=== PATIENT | female | born 1960 | race Caucasian/White ===

== ENCOUNTER → 2019-08-23 09:20 | Outpatient (CLI) | payer OTHER, SELFPAY ==
--- NOTE | ~2019-08-23 | XR_ITS ---
XR hip RT 2V w AP pelvis 08/23/2019 10:30 Indication: Hip pain Procedure: AP pelvis and 2 views right hip Comparison: Comparison to multiple prior studies sequentially, with oldest reviewed study dated 04/19. Findings: Pelvic rings are intact. Sacral foramen are symmetric. Mild osteoarthritis of the right hip . There is a dynamic compression screw of the right femoral neck with intramedullary siomara. There is a single distal interlocking screw. No acute fracture or traumatic malalignment. Impression: 1: No acute fracture. Reviewed, dictated and finalized at location A. UREMENT AND SENSING TECHNICIAN Impression: 1: No acute fracture.
== END ==
PROVIDERS: PCP Family Medicine; Visit Provider Physician Assistant
DX: M25.559 Pain in unspecified hip (principal)
CPT/HCPCS: 73502; 73521

== ENCOUNTER 2021-02-17 08:22 | Day surgery (SDC) | payer OTHER, SELFPAY ==
[2021-02-17] VITALS (7 sets, daily range): BP systolic 139–171; BP diastolic 76–92; PULSE 62–78; RESP 16–22; TEMP 36.4–36.8; O2SAT 94–100; BMI 23.6
--- NOTE | ~2021-02-17 | XR_ITS ---
EXAMINATION: XR surgery orthopedic DATE: 02/17/2021 17:01 INDICATION: Distal left radius fracture. TECHNIQUE: 3 intraoperative fluoroscopic views of left wrist were obtained. I was not present. Fluoro scopy exposure time was 18 seconds. COMPARISON: Left wrist radiographs 02/16/2021 FINDINGS: There is a comminuted fractures of distal radius in near-anatomic alignment status post ope n reduction internal fixation with volar plate and screws. There is an avulsion fracture of the ulnar styloid. IMPRESSION: 1. Comminuted fracture of distal radius status post open reduction internal fixation. 2. Avulsion fracture of the ulnar styloid. Reviewed, dictated and finalized at location A. IMPRESSION: 1. Comminuted fracture of distal radius status post open reduction internal fix ation. 2. Avulsion fracture of the ulnar styloid.
[2021-02-17] MEDS: ACETAMINOPHEN 500 MG TABLET 1000 MG PO (12:00)
--- NOTE | 2021-02-17 12:06 | WPDANESEPPF ---
Anes - Initial Pre Proc Eval Procedure: Operation Date: 02/17/21 13:30 Proposed Procedures p Open Reduction Internal Fixation Left Distal Radius Fracture - Jordon Purdy MD Date/Time: 02/17/21 12:06 Surgeon: Jordon Purdy MD Pre Op Diagnosis: left distal radius fx Patient Data Age: 60 Gender: F Height: 1.7 m Weight: 68.6 kg Allergies Allergy/AdvReac Type Severity Reaction Status Date / Time No Known Allergies Allergy Verified 02/17/21 11:48 Home Medications Medication Instructions Recorded Confirmed Type alendronate 70 mg tablet See Rx Instructions .ROUTE 08/06/19 02/17/21 Rx .COMPLEX #12 tablet omeprazole 40 mg capsule,delayed 40 mg PO DAILY #30 cap 12/23/19 02/17/21 Rx release meloxicam 15 mg tablet 15 mg PO DAILY #30 tablet 12/26/19 02/17/21 Rx ergocalciferol (vitamin D2) 1,250 50,000 unit PO WEEKLY #4 cap 01/17/20 02/17/21 Rx mcg (50,000 unit) capsule buspirone 5 mg tablet 5 mg PO BID 02/17/21 02/17/21 History ketorolac 10 mg tablet 10 mg PO Q6H PRN 02/17/21 02/17/21 History ondansetron 4 mg disintegrating 4 mg PO Q8H 02/17/21 02/17/21 History tablet Patient hx anesthesia problems: none Family hx anesthesia problems: none PMFSH Past Medical History Medical History (Updated 02/17/21 @ 08:17 by Jordon Purdy MD) Arthritis Elevated TSH Essential hypertension Fracture of left distal radius Nondisplaced fracture of left ulna styloid process, initial encounter for closed fracture Osteoporosis without current pathological fracture Vitamin D deficiency Surgical History Surgical History (Updated 02/17/21 @ 08:15 by Jordon Purdy MD) Right femoral shaft fracture IM siomara Right patella fracture ORIF and subsequent hardware removal 2010 Family History Family History Mother Hypertension Family history of coronary artery disease Family history of malignant neoplasm of breast in first degree relative, Onset Age: 68 Carcinoma of colon, Onset Age: 35 Father Diabetes mellitus Hypertension Family history of coronary artery disease Sibling Family history of kidney disease Social History Social History Smoking status: Former smoker Second hand tobacco smoke exposure: Yes Smoking end date: 06/18/14 Alcohol intake: current Spiritual care concerns: No Anes - Eval Final PreProcedure Day of Procedure 02/17/21 12:06 Patient weight: normal Heart: regular rate and rhythm Lungs: clear to auscultation and normal air movement Airway: Mallampati scale class II Neurological: alert and oriented Last oral intake: >/= 8 hours ASA classification: II Emergent: no Anesthetic plan: proceed Anesthesia type and monitoring: general LMA and standard monitoring Informed Consent: The patient's anesthetic plan and its attendant risks and benefits were discussed with the patient/family/POA. Questions were solicited and answers provided to the satisfaction of the patient/family/POA.
--- NOTE | 2021-02-17 12:13 | WPDANESPNB ---
Anes - Peripheral Nerve Block Date/Time: 02/17/21 12:13 I have discussed with the patient/family/POA the placement of a peripheral nerve block for post-operative pain management, including associated risks, benefits, complications, and side effects. Alternative methods of post-operative analgesia were detailed. Questions were solicited and answers provided to the satisfaction of the patient/family/POA. Time-Out: A pre-procedural Time-Out was completed immediately before starting the procedure and confirmed: Patient Identification, Site, Procedure, Patient Position and the Availability of Requisite Equipment. Clinical Indications: Acute post-operative pain management requested by the operative surgeon. Nerve Block Insertion Note Anes-nerve block: supraclavicular left Patient position: supine Skin prep: chlorhexidine Needle: 22 gauge, stimulating, insulated echogenic needle. Needle length: 50 mm Technique: ultrasound Injectate: bupivacaine 0.5% with epi 5 mcg/ml (30cc- no epi) Observations: tolerated well Complications: none Procedure start time:: 1407 Procedure end time:: 1411
[2021-02-17] MEDS: KETOROLAC 15 MG/ML VIAL (*BKC) IV PUSH (12:14)
--- NOTE | 2021-02-17 12:14 | WPDHPUPDATE1 ---
History and Physical Update Update Date/Time: 02/17/21 12:14 History and Physical has been reviewed, including an updated exam of the patient. There are NO changes in the patient's condition. Risks, benefits, and alternatives have been discussed and questions answered. Patient agrees to proceed with procedure.
[2021-02-17] MEDS: LACTATED RINGERS 1,000 ML 30 ML IV CONT ×2 (12:15→17:47)
--- NOTE | 2021-02-17 12:15 | SUR.PREOP ---
DR CHRISTOPHER AT BEDSIDE. MARKING PT. STATES NO HAIR REMOVAL NEEDED. PLEASE DO SPENCER SCRUB.
[2021-02-17] MEDS: ceFAZolin 2 GM/D5W 50 ML 2 GM/50 ML BAG IVPB (15:26)
[2021-02-17] MEDS: ceFAZolin SODIUM 1 GM VIAL IV PUSH (16:52)
--- NOTE | 2021-02-17 17:08 | W.PM.PROC2 ---
Procedure Note - Detailed Date of Procedure 02/17/21 Pre-op Diagnosis Intra-articular left distal radius fx Post-op Diagnosis same Procedure Performed ORIF left distal radius fracture with fluoroscopic assistance Surgeon Jordon Purdy MD Laboratory Aide Kavon Fleming Anesthesia general and regional Indications See H&P Description of Procedure The patient was identified and the proper side identified. In the preop holding area, the anesthesia team performed a left upper extremity block. She was taken back to the operating room, transferred to the or table positioning supine taking care to pad her torso and extremities. After general anesthetic induction and intubation, a nonsterile tourniquet was placed high on the left arm which was prepped and draped in the usual sterile fashion. The extremity was exsanguinated and tourniquet inflated to 200 mmHg remaining up for approximately 49 minutes. A volar longitudinal incision was made along the FCR tendon distally. The subcutaneous tissue was sharply dissected protecting neurovascular structures. The FCR tendon was released from its sheath and retracted ulnarly. This allowed for the deep fascia of the forearm to be divided longitudinally in line with the incision. Care was taken to protect the volar compartment structures as well as the radial nerve and radial vascular structures. The pronator quadratus was elevated off of the distal radius allowing for inspection of the fracture site. The fracture fragments were disimpacted and able to be realigned virtually anatomically with fluoroscopic assistance. They were secured in this position with a short, wide, left distal radius plate from the DVR set. The plate was applied with fluoroscopic visualization to avoid penetration of the joint and to ensure optimal hardware placement. Once the plate was secure the overall construct was assessed fluoroscopically on the AP and lateral views. The virtually anatomic reduction was held very nicely. The construct was stable. The wound was irrigated with a copious amount of sterile antibiotic solution. Skin edges were reapproximated with 2-0 Stratafix and tissue adhesive for the skin. Sterile dressing was applied. Tourniquet was released. A well-padded short-arm volar wrist splint was fashioned. The procedure was well tolerated. There were no known intraoperative complications. Estimated blood loss was negligible. Estimated Blood Loss 5 Tourniquet Time 49 Drains No Packing No Pathology none sent Complications No immediate complications Condition stable Disposition PACU
--- NOTE | 2021-02-17 17:49 | SUR.PHASEI ---
PT AWAKE AND ALERT. TALKATIVE.
== END 2021-02-17 18:45 | disposition home or self-care (01) ==
PROVIDERS: PCP Nurse Practitioner Family; Visit Provider Orthopaedic Surgery
PROC: (CPT 25575; principal; 2021-02-17 13:30)
DX: S52.572A Other intraarticular fracture of lower end of left radius, initial encounter for closed fracture (principal); W19.XXXA Unspecified fall, initial encounter; G89.18 Other acute postprocedural pain; I10 Essential (primary) hypertension; M81.0 Age-related osteoporosis without current pathological fracture; E55.9 Vitamin D deficiency, unspecified; M19.90 Unspecified osteoarthritis, unspecified site; Z87.891 Personal history of nicotine dependence
CPT/HCPCS: 25608; 64415; A4565; A9270; C1713; J0690; J1100; J1885; J2250; J2405; J2704; J3010; J7120

== ENCOUNTER → 2023-03-16 10:21 | Outpatient (CLI) | payer BC, SELFPAY ==
--- NOTE | ~2023-03-16 | DEXA_ITS ---
Bone Density Report Name: SKYE GARCIA Age: 62 Sex: Female Ethnicity: White Date of : 1960 Indication: postmenopausal osteoporosis; parental hip fracture; prior fracture; Referring Provider: RANDBENITEZ Study: Bone densitometry was performed. Exam Date: March 16, 2023 Accession number: [id number] Bone Density: Region BMD T-score Z-score Classification AP Spine (L1-L4) 0.636 -3.7 -2.2 Osteoporosis Femoral Neck (Left) 0.430 -3.8 -2.4 Osteoporosis Total Hip (Left) 0.615 -2.7 -1.7 Osteoporosis World Health Organization criteria for BMD impression classify patients as: Normal (T-score at or above -1.0), Osteopenia (T-score between -1.0 and -2.5), or Osteoporosis (T-score at or below -2.5). 10-year Fracture Risk: FRAX not reported because: Some T-score for Spine Total or Hip Total or Femoral Neck at or below -2.5 Prior hip or vertebral fracture Previous Exams: Region Exam Age BMD T-score BMD Change BMD Change Date g/cm2 vs Baseline vs Previous AP Spine(L1-L4) 03/16/2023 62 0.636 -3.7 0.012 0.012 09/13/2018 57 0.624 -3.8 Total Hip(Left) 03/16/2023 62 0.615 -2.7 -0.024 -0.024 09/13/2018 57 0.639 -2.5 *Denotes significance at 95% confidence level, LSC for AP Spine = 0.022 g/cm2, LSC for Total Hip = 0.027 g/cm2 Clinical Information Provided by Patient: Have had a previous hip or vertebral fracture Has had a low trauma fracture Parent has had a hip fracture Menopause Age: 38 Impression: The patient has established osteoporosis, based on the Left Femoral Neck T-score and the existence of a prior fracture. The patient has risk factors, including: parental hip fracture, previous fracture. No significant bone loss was observed. Discussion: HIGH RISK OF FRACTURE. BONE DENSITY IS UNDESIRABLY LOW AT ONE OR MORE SKELETAL SITES, CONSISTENT WITH POSTMENOPAUSAL OSTEOPOROSIS. This patient's lowest T-score, in a patient who has previously fractured, meets the World Health Organization's (WHO) criteria for severe osteoporosis. In untreated patients, the risk of osteoporotic fracture increases approximately two-fold for each 1.0 SD decrease in T-score. Low bone density is not the only risk factor for fracture; also consider factors such as patient's age, frailty or poor health, risk of falling, risk of injury, previous osteoporotic fracture, family history of osteoporosis, cigarette smoking, low body weight, etc. Not everyone with low bone mineral density has osteoporosis; osteomalacia and ot
--- NOTE | ~2023-03-16 | MM_ITS ---
EXAMINATION: MM screening bhavesh BI w erick HISTORY: Screening mammogram TECHNIQUE: Craniocaudal and mediolateral oblique 3-D tomosynthesis images were obtained and synthetic 2-D images were generated. CAD analysis was submitted and interpreted. COMPARISON: 09/13/2018 bilateral screening mammogram BREAST PARENCHYMAL COMPOSITION: There are scattered areas of fibroglandular FINDINGS: There is no evidence of suspicious mass, calcification, or architectural distortion to sugg est malignancy in either breast. There has been no suspicious interval change. IMPRESSION: 1. No mammographic evidence of malignancy. 2. Recommend routine screening mammography in one year. BI-RADS Category 1: Negative Reviewed, dictated and finalized at location A.
== END ==
PROVIDERS: PCP Nurse Practitioner Family; Visit Provider Nurse Practitioner Family
DX: Z12.31 Encounter for screening mammogram for malignant neoplasm of breast (principal); Z78.0 Asymptomatic menopausal state; M81.0 Age-related osteoporosis without current pathological fracture
CPT/HCPCS: 77063; 77067; 77080

== ENCOUNTER 2024-03-07 13:31 | Emergency (ER) | payer BC, SELFPAY ==
[2024-03-07] VITALS (12 sets, daily range): BP systolic 140–163; BP diastolic 67–97; PULSE 78–94; RESP 16–22; TEMP 36.3; O2SAT 95–100
--- NOTE | ~2024-03-07 | XR_ITS ---
EXAMINATION: XR chest 2V DATE: 03/07/2024 14:04 INDICATION: Chest pain. Shortness of breath. TECHNIQUE: Frontal and lateral views of the chest were obtained. COMPARISON: Chest 2 views 08/22/10 FINDINGS: There is no pneumonia, pleural effusion, or pneumothorax. The heart size is normal. Calcifi ed hilar and mediastinal lymph nodes are consistent with old granulomatous disease. There is mild chr onic anterior wedging of multiple vertebral bodies. IMPRESSION: 1. No acute cardiopulmonary disease. Reviewed, dictated and finalized at location A.
--- NOTE | 2024-03-07 13:33 | ECG_ITS ---
Test Date: 2024-03-07 13:42:48 Measurements Intervals [place] Rate: 74 P: 53 IN: 132 QRS: 59 QRSD: 78 T: 86 QT: 372 QTc: 413 Interpretive Statements SINUS RHYTHM BASELINE ARTIFACT- I, III, AVR, AVL, V2 NORMAL ECG No previous ECG available for comparison Electronically Signed On 03-07-2024 18:49:13 CDT by Alton Shay D.O.
[2024-03-07 13:56] LABS: Basophils Percent Auto 0.5 % (0.2-1.2); Eosinophils Percent Auto 0.3 % (0-4.4); Hematocrit 35.4 % (37.0-47.0); Hemoglobin 11.8 g/dL (12.0-15.0); Immature Granulocyte Absolute 0.02 K/mm3 (0.00-0.031); Immature Granulocyte Percent A 0.3 % (0-0.5); Lymphocytes Absolute Auto 1.16 K/mm3 (0.9-3.2); Lymphocytes Percent Auto 14.7 % (18.3-44.2); Mean Corpuscular HGB Conc 33.3 g/dl (32-36); Mean Corpuscular Hemoglobin 29.4 pg (26-34); Mean Corpuscular Volume 88.1 fl (80-100); Mean Platelet Volume 9.5 fl (7.4-10.4); Monocytes Absolute Auto 0.3 K/mm3 (0.1-0.6); Monocytes Percent Auto 4.1 % (2.6-8.5); Neutrophils Absolute Auto 6.3 K/mm3 (1.3-6.7); Neutrophils Percent Auto 80.1 % (45.5-73.1); Platelet Count Result 284 k/mm3 (150-375); Red Blood Count 4.02 M/mm3 (4.2-5.4); White Blood Count 7.9 K/mm3 (4.5-10.0)
[2024-03-07 14:06] LABS: Prothrombin Time 13.9 Seconds (11.1-14.7)
[2024-03-07 14:08] LABS: Alanine Aminotransferase 14 U/L (6-35); Albumin Level 4.6 g/dL (3.5-5.1); Alkaline Phosphatase 91 U/L (38-126); Anion Gap 10 mmol/L (4-12); Aspartate Amino Transferase 24 U/L (14-36); Bilirubin,Total 0.5 mg/dL (0.2-1.3); Blood Urea Nitrogen 9 mg/dL (7-17); Calcium 9.5 mg/dL (8.4-10.2); Carbon Dioxide 27 mmol/L (22-30); Chloride 102 mmol/L (98-107); Estimated CRCL calculation 59 ml/min; Estimated Glomerular Filt Rate > 60; Glucose 133 mg/dL (65-110); Lipase 75 U/L (23-300); Potassium 3.8 mmol/L (3.4-5.0); Sodium 139 mmol/L (137-145)
[2024-03-07 14:19] LABS: Troponin I 0.016 ng/mL (0.000-0.034)
--- NOTE | 2024-03-07 15:45 | ED.CHESTPAIN ---
HPI - Chest Pain General Chief Complaint: Chest Pain Stated Complaint: indigestion, left side/back pain Time Seen by Provider: 03/07/24 15:36 History of Present Illness HPI narrative: Patient is a 63-year-old female who presents to the emergency department this afternoon complaining of chest pain in the middle of her chest radiating to her left chest associated with nausea. Patient states that she has been having the same pain intermittently on and off for the past 6 months but states that today she felt as though it was worse than the previous times that she wanted to be checked. Denies any cardiovascular history but states that she does have a strong family history of cardiovascular disease. Patient does have a history of hypertension and is very compliant with her medications. Patient was initially seen at an urgent care and was sent to our facility for further evaluation and additional chest pain workup. No additional symptoms or concerns at this time. Related Data Home Medications Medication Instructions Recorded Confirmed buspirone 5 mg tablet 5 mg PO BID 02/17/21 05/11/21 ondansetron 4 mg disintegrating 4 mg PO Q8H 02/17/21 05/11/21 tablet Allergies Allergy/AdvReac Type Severity Reaction Status Date / Time No Known Allergies Allergy Verified 03/07/24 16:06 Review of Systems Review of Systems: All systems are reviewed and are negative unless stated otherwise in the HPI. PMF Past Medical History Medical History Arthritis Elevated TSH Essential hypertension Osteoporosis without current pathological fracture Vitamin D deficiency Surgical History Surgical History Fracture of left distal radius ORIF 02-17-2021 Right femoral shaft fracture IM siomara Right patella fracture ORIF and subsequent hardware removal 2010 Family History Family History Mother Hypertension Family history of coronary artery disease Family history of malignant neoplasm of breast in first degree relative, Onset Age: 68 Carcinoma of colon, Onset Age: 35 Father Diabetes mellitus Hypertension Family history of coronary artery disease Sibling Family history of kidney disease Social History Social History Smoking status: Former smoker Second hand tobacco smoke exposure: Yes Smoking end date: 06/18/14 Alcohol intake: current Spiritual care concerns: No Exam Narrative: General: Alert, awake, afebrile, in no acute distress. HEENT: PERRL, no rhinorrhea, no post nasal drip, oropharynx clear. Cardiovascular: Regular rate and rhythm, no murmurs, rubs or gallops, no peripheral edema. Respiratory: Clear to auscultation bilaterally, no tachypnea, no wheezing, no rhonchi, no rubs, no respiratory distress. Abdomen: Soft, nontender, nondistended, no rebound, no guarding, no peritoneal signs. Musculoskeletal: No joint swelling or deformity, normal muscle tone. Skin: No rashes or petechia, no signs of infection. Neurological: Alert and oriented to person, place, and time. Follows all commands. No focal deficits, speech is clear and fluent. Course Vital Signs Vital signs: Vital Signs Temperature 97.3 F L 03/07/24 13:40 Pulse Rate 78 03/07/24 13:40 Respiratory Rate 17 03/07/24 13:40 Blood Pressure 163/94 H 03/07/24 13:40 Pulse Oximetry 100 03/07/24 13:40 Oxygen Delivery Room Air 03/07/24 13:40 Temperature 97.3 F L 03/07/24 13:40 Pulse Rate 88 03/07/24 18:48 Respiratory Rate 20 03/07/24 18:48 Blood Pressure 141/67 H 03/07/24 18:48 Pulse Oximetry 97 03/07/24 18:48 Oxygen Delivery Room Air 03/07/24 13:40 MDM - Chest Pain MDM Narrative Medical decision making narrative: The patient was evaluated by myself in the emergency department. History is o
[2024-03-07 17:22] LABS: Troponin I < 0.012 ng/mL (0.000-0.034)
[2024-03-07] MEDS: PANTOPRAZOLE 40 MG TABLET PO (18:13)
== END 2024-03-07 19:05 | disposition home or self-care (01) ==
PROVIDERS: Emergency Provider Emergency Medicine; PCP Nurse Practitioner Family
DX: R07.9 Chest pain, unspecified (principal); I10 Essential (primary) hypertension; E55.9 Vitamin D deficiency, unspecified; M81.0 Age-related osteoporosis without current pathological fracture; M19.90 Unspecified osteoarthritis, unspecified site; Z87.891 Personal history of nicotine dependence
CPT/HCPCS: 36415; 71046; 80053; 83690; 84484; 85025; 85610; 85730; 93005; 99284; A9270

== ENCOUNTER 2024-09-17 20:49 | Emergency (ER) | payer BC, SELFPAY ==
--- NOTE | ~2024-09-17 | CT_ITS ---
Non-contrast Head CT History: Headache Technique: Axial non-contrast imaging of the brain was performed. Dose reduction technique was used on this scan by utilizing automated exposure control and iterative reconstruction technique. The dose -length product (DLP) was 605.33 mGy-cm. Findings: There is no evidence of intracranial hemorrhage, mass lesion, or acute infarct. Brain par enchyma appears normal. The ventricles and subarachnoid spaces are normal in size. The calvarium ap pears normal. The visualized paranasal sinuses and mastoid air cells are clear. Impression: No significant abnormality seen. Reviewed, dictated and finalized at location . Impression: No significant abnormality seen.
--- OUTSIDE RECORDS SUMMARY | 2024-09-17 20:51 | XMS_ITS | CONTINUITY OF CARE DOCUMENT ---
Author Name gary vega Address Unknown Organization [facility] Address [address] [place] [address] Phone [phone] Care Team Providers Care Traffic Operations Manager Name Role Phone Milo Guajardo MD Unavailable Milo Guajardo MD Unavailable INSURANCE PROVIDERS Payer name Policy type / Coverage type [place] red constitution party ID [facility] Blue [facility] [id number]
--- OUTSIDE RECORDS SUMMARY | 2024-09-17 20:51 | XMS_ITS | Clinical Summary ---
Author Organization [facility] Address [address] [place] [id number] Care Team Providers Care Manufacturing Development Engineer Name Role Phone Soniya Owens NP Primary Care Provider [phone] Allergies No known active allergies Medications alendronate (FOSAMAX) 70 mg tablet Take 70 mg by mouth once a week Sunday11/20/19 20 Active busPIRone (BUSPAR) 5 mg tablet Take 5 mg by mouth 2 (two) times a day 09/18/19 21 Active ergocalciferol (VITAMIN D) 50,000 unit capsule Take 50,000 Units by mouth once a week Sunday01/27/20 21 Active omeprazole (PriLOSEC) 40 mg capsule Take 40 mg by mouth daily as needed Active meloxicam (MOBIC) 15 mg tablet Take 15 mg by mouth daily as needed for pain Active HYDROcodone-acetam inophen (NORCO) 5-325 mg per tabletIndications: Pain Take 1 tablet by mouth every 6 (six) hours as needed for pain 12 tablet 02/17/20 21 Active ondansetron ODT (ZOFRAN-ODT) 8 mg disintegrating tablet TAKE 1 TABLET BY MOUTH EERY 8 HOURS NEEDED FOR NAUSEA 11/30/19 20 Active prednisoLONE acetate (PRED FORTE) 1 % ophthalmic suspension prednisolone acetate 1 % eye drops,suspension 1 DROP INTO SURGICAL EYE 3 TIMES PER DAY STARTING AFTER SURGERY Active Active Problems Problem Noted Date Diagnosed Date Current every day smoker 01/22/2020 Anxiety 01/19/2020 Body mass index (BMI) of 24.0 to 24.9 in adult 0 01/19/2020 Gastroesophageal reflux disease 01/19/2020 Osteoporosis without current pathological fractu re 01/19/2020 Abnormal findings on diagnostic imaging of breas t 02/04/2014 Disorder of breast 02/03/2014 Immunizations Immunization Administration Dates Next Due Influenza, Quadrivalent, Spl it, Preservative Free, Intramuscular 06/24/2019 Tdap 06/04/2018 Surgical History Surgery Date Site/Laterality Comments CATARACT EXTRACTION KNEE SURGERY FEMUR FRACTURE SURGERY Medical History Medical History Date Comments GERD (gastroesophageal reflux disease) Breast lump Hypertension Family History Medical History Relation Name Comments Dementia Father Leukemia Father Lymphoma Father Breast cancer Mother Colon cancer Mother Breast cancer Other Adenocarcinoma of breast - Relation: Grandmother (Added by TW Conv) Relation Name Status Comments Father Mother Other Social History Tobacco Use Types Packs/Day Years Used Date Smoking Tobacco: Former Smokeless Tobacco: Never Personal Safety Answer Date Recorded Getting School Help Needed Not on file 08/31 Comments Unknown Sex and Gender Information Value Date Recorded Sex Assigned at Not on file 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 Gender Identity Not on file Sexual Orientation Not on file Obstetrics History Last Filed Vital Signs Vital Sign Reading Time Taken Comments Blood Pressure 149/94 12/23/2021 9:09 AM CDT Pulse 82 12/23/2021 9:09 AM CDT Temperature 37.1 C (98.7 F) 12/23/2021 9:09 AM CDT Respiratory Rate 16 12/23/2021 9:09 AM CDT Oxygen Saturation 99% 12/23/2021 9:09 AM CDT Inhaled Oxygen Concentration - - Weight 70.3 kg (155 lb) 12/23/2021 9:09 AM CDT Height 169 cm (5' 6.54 ) 12/23/2021 9:09 AM CDT Body Mass Index 24.62 12/23/2021 9:09 AM CDT Plan of Treatment Health Maintenance Due Date Last Done Comments Breast Cancer Screening-Mammogram 1960 Cervical Cancer Screening 1960 Colon Cancer Screening-Colonoscopy 1960 Depression Screening 1960 Hepatitis C Screening 1960 Hepatitis B Screening 10/14/1979 Regular Well Visit/Exam 18-64 10/14/1979 Zoster Vaccine (1 of 2) 10/14/2011 Influenza Vaccine (#1) 2024 06/24/2019 DTaP/Tdap/Td Vaccine (2 - Td or Tdap) 06/04/2028 06/04/2018 Pneumococcal vaccine <65 Aged Out No longer eligible based on patient's age to complete this topic Insurance CHOICE PLUS Care Teams Manufacturing Development Engineer Relationship Specialty Start Date End Date Soniya Owens NP [address] [place] [address] PCP - General Nurse Practitioner 02/16/21
--- OUTSIDE RECORDS SUMMARY | 2024-09-17 20:51 | XMS_ITS | Referral Summary ---
Author Organization [facility] Address [address] [place] [id number] Care Team Providers Care Insulator Apprentice Name Role Phone Soniya Owens NP Primary Care Provider [phone] Allergies No known active allergies Medications alendronate [...] it, Preservative Free, Intramuscular 06/24/2019 Tdap 06/04/2018 Social History Tobacco Use Types Packs/Day Years Used Date Smoking Tobacco: Former Smokeless Tobacco: Never Personal Safety Answer Date Recorded Getting School Help Needed Not on file 08/31 Comments Unknown Sex and Gender Information Value Date Recorded Sex Assigned at Not on file 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
--- OUTSIDE RECORDS SUMMARY | 2024-09-17 20:51 | XMS_ITS | Data Portability ---
Author Organization [facility] [place] Address [address] [place] [address] Care Team Providers Care Property Accountant Name Role Phone BENITEZ GORDILLO Primary Care Provider Assessment Encounter Date Assessment Date Assessment LastModified by Organization Details LastModified Time 10/07/2021 10/07/2021 Annual gynecological exam performed. Patient will come back in a year unless there are new symptoms. Suggest Calcium with Vitamin D if not eating in diet. Patient advised to get annual flu shot. Recommend yearly physicals and preform monthly breast exams. Genetic testing is available for patients with family history of cancer. Engage in safe sexual practices, use condoms. Encouraged to have daily exercise. Avoid tobacco and illicit drugs, moderation of alcohol. If BMI greater than 25 dietary consult advised. If you have any questions please call or email. dexa and mammogram ordered, f/u pcp for blood pressure [email or web address] Not available 10/07/2021 16:51:03 Plan of Treatment Reminders Order Date Submit Date Provider Last Modified By Organization Details Last Modified Time Details Appointments None record ed. Lab None record ed. Referral None record ed. Procedures None record ed. Surgeries None record ed. Imaging None record ed. Medication Orders None record ed. Patient TargetsNo targets recorded. Patient InstructionsNo instructions recorded. Reason for Referral None Reported. Results Created Date Observation Date Name Description Value Unit Range Abnormal Flag Note LastModifiedBy Organization Detail LastModifiedTime 10/08/19 22 10/07/2021 IMAGE GUIDE D PAP AND HPV REGAR DLESS image guided Pap, HPV regardless of Pap result SEE RESULT S BELOW abnormal CASE REPOR T: Cytol ogy Gynec ologi reny Repor t Case: [id number] Autho rizin g Provi kan: Jackie Louise NP Colle cted: 10/07 1624 Order ing Locat ion: [place] [facility] Recei sugar: 10/08 0200 First Scree n: Strut z, Willi am, CT Patho logis t: Rigo Tang MD Speci men: Arsenio murillo Pap - Image d, Cervi x STATE MENT OF ADEQU ACY: Satis facto ry for evalu ation Trans forma tion zone compo nent prese nt FINAL DIAGN OSIS: Epith elial Cell Abnor malit y, Squam ous Cell: Low 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 Elect elliott zapata by Rigo Tang MD on 022 at 1:12 PM ----- ----- ----- ----- ----- ----- ----- ----- ----- ----- ----- ----- ----- ----- ----- ----- ----- ---- HPV RESUL TS: HPV mRNA E6/E7 : Posit michelle - HPV mRNA Detec lauren HPV GENOT YPE 16 (KARIN) : Not Detec lauren HPV GENOT YPE 18/45 (KARIN) : Not Detec lauren NOTE: This high risk HPV mRNA assay detec ts fourt een high- risk HPV types (16, 18, 31, 33, 35, 39, 45, 51, 52, 56, 58, 59, 66, 68) witho ut diffe renti ation . This assay can diffe renti ate HPV 16 from HPV 18/45 , but does not diffe renti ate betwe en HPV 18 and HPV 45. A negat michelle HPV 16, 18/45 genot ype assay resul t does not exclu de the possi bilit y of cytol ogic abnor malit ies or of futur e or under lying PONCHO 1, PONCHO 3 or cance r. COMME NT: Note: This speci men was revie wed by a Cytot echno logis t and/o r Patho logis t (as indic ated in this repor t) after evalu ation using the Thinp rep Imagi ng Syste m. CLINI RENY INFOR MATIO N: Menst rual Statu s: LMP (if appli cable ): Clini reny Histo ry/Pr eviou s Pap: Type of Neopl dalton (if appli cable ): Signi fican t Clini reny Findi ngs: Other Histo ry: Hormo iliana (if appli cable ): SUGGE STED FOLLO W-UP: Follo w up as warra nted, based on curre nt guide lines and indiv idual patie nt consi derat ions. Not Available [facility] (Lab) [address], [place], [address], 10/17/2021 14:15:06 Result Notes None recorded. Procedures Surgical History Date Name Laterality Status Provider Name and Address Organization Details Recorded Time 12/01/19 22 Colposcopy completed [facility] 11/30/2021 10:11:03 12/01/19 22 Colposcopy completed [facility] 11/30/2021 10:08:20 10/08/19 22 Date of Last Pap Smear completed [facility] 10/07/2021 17:31:07 09/17/19 [facility] 10/07/2021 17:42:37 08/17/19 21 [facility]l [facility] rmvl cplx wo ecp completed [facility] 10/07/2021 17:42:30 06/18/19 19 Date of Last Colonoscopy completed [facility] 10/07/2021 17:33:21 06/18/19 19 Colonoscopy completed [facility] 10/07/2021 17:42:09 06/30/19 14 Date of Last Mammogram completed [facility] 10/07/2021 17:31:55 06/18/19 08 operative procedure on knee completed [facility] 10/07/2021 17:41:59 06/18/19 06 procedure on upper arm completed [facility] 10/07/2021 17:40:36 06/18/19 06 procedure on femur completed [facility] 10/07/2021 17:41:29 06/18/19 04 Partial Hysterectomy completed [facility] 10/07/2021 17:39:34 Imaging Results None recorded. Procedure Notes None recorded. Medical Equipment None Reported. Allergies No known drug allergies Medications Name Sig Start Date Stop Date Status Note LastModified by Organization Details LastModified Time buspirone 5 mg tablet TAKE 1 TABLET BY MOUTH TWICE A DAY active Not Available Not Available No t Available alendrona te 5 mg tablet take 1 tablet by oral route every day in the morning, at least 30 min before first food, beverage , or medicati on of day 2018 active Prescrib ed Elsewher e: Yes Loca tion: [facility] M odify By: rebecca kam DateTime : 10/30/19 19 01:00:00 PM Not Available Not Available Not Available ofloxacin 0.3 % eye drops INSTILL 1 DROP INTO AFFECTED EYE THREE TIMES A DAY DIRECTED TO BEGIN TWO DAYS PRIOR TO SURGERY 11/30 completed Not Available Not Available Not Available hydrocodo ne 5 mg-acetam inophen 325 mg tablet TAKE 1 TABLET BY MOUTH EVERY 6 HOURS NEEDED FOR PAIN 11/30 completed Not Available Not Available Not Available meloxicam 15 mg tablet TAKE 1 TABLET BY MOUTH EVERY DAY active Not Available Not Available No t Available ondansetr on HCl 4 mg tablet TAKE 1 TABLET BY MOUTH EVERY 8 HOURS 11/30 completed Not Available Not Available Not Available omeprazol e 40 mg capsule,d elayed release TAKE 1 CAPSULE BY MOUTH EVERY DAY active Not Available Not Available No t Available ketorolac 10 mg tablet TAKE 1 TABLET BY MOUTH EVERY 6 HOURS NEEDED FOR PAIN. active Not Available Not Available No t Available ketorolac 0.5 % eye drops INSTILL 1 DROP INTO AFFECTED EYE FOUR TIMES A DAY BEGIN USE 2 DAYS BEFORE SURGERY active Not Available Not Available No t Available Metrogel Vaginal 0.75 % (37.5 mg/5 gram) insert 1 applicat orful (37.5MG) by vaginal route every day at bedtime 02/11 completed Prescrib ed Elsewher e: No Locat ion: [facility] odify By: kartik edouard DateTime : 02/15/20 11 09:37:33 AM Not Available Not Available Not Available prednisol one acetate 1 % eye drops,nicola pension 1 DROP INTO SURGICAL EYE 3 TIMES PER DAY STARTING AFTER SURGERY active Not Available Not Available No t Available hydrocodo ne 7.5 mg-acetam inophen 325 mg tablet TAKE 1 TABLET BY MOUTH EVERY 6 HOURS NEEDED FOR PAIN 11/30 completed Not Available Not Available Not Available ergocalci ferol (vitamin D2) 1,250 mcg (50,000 unit) capsule TAKE 1 CAPSULE BY MOUTH ONE TIME PER WEEK active Not Available Not Available No t Available Vitamins and Minerals tablet 10/29 completed Prescrib ed Elsewher e: Yes Loca tion: [facility] odify By: deidraknita kam DateTime : 02/12/20 12 02:02:56 PM Not Available Not Available Not Available Vitals Date Recorded Body height Body mass index (BMI) Body weight Systolic blood pressure Diastolic blood pressure Provider Name and Address Organization Details Last Updated DateTime 10/07/2021 165.1 cm 26.8 kg/m2 38721.37 g 173 mm[Hg] 87 mm[Hg] Liyah Glaser [facility] 2 16:29:28 Date Recorded Body height Body mass index (BMI) Body weight Systolic blood pressure Diastolic blood pressure Provider Name and Address Organization Details Last Updated DateTime 11/30/2021 165.1 cm 25.6 kg/m2 39744.22 g 148 mm[Hg] 82 mm[Hg] Liyah Glaser [facility] 10:06:42 Social History Question Answer Notes LastModified by Organizat ion Details LastModified Time Tobacco Smoking Status Former Smoker Radha Chacon elisabeth, [facility] 11/30/2021 09:44:02 Do You Have An Advance Directive? No [email or web address] Information not available 10/07/2021 What Is Your Level Of Alcohol Consumption? Occasional [email or web address] Information not available 10/07/2021 How Many Years Have You Consumed Alcohol? 5 [email or web address] Information not available 10/07/2021 Are You Blind Or Do You Have Difficulty Seeing? No [email or web address] Information not available 10/07/2021 What Is Your Level Of Caffeine Consumption? Occasional [email or web address] Information not available 10/07/2021 How Much Tobacco Do You Chew? None [email or web address] Information not available 10/07/2021 In The 14 Days Before Symptom Onset, Have You Had Close Contact With A Laboratory-confir med COVID-19 While That Case Was Ill? No [email or web address] Information not available 10/07/2021 In The 14 Days Before Symptom Onset, Have You Had Close Contact With A Person Who Is Under Investigation For COVID-19 While That Person Was Ill? No [email or web address] Information not available 10/07/2021 Have You Been To An Area Known To Be High Risk For COVID-19? No [email or web address] Information not available 10/07/2021 Are You Deaf Or Do You Have Serious Difficulty Hearing? No [email or web address] Information not available 10/07/2021 What Type Of Diet Are You Following? REGULAR [email or web address] Information not available 10/07/2021 What Is The Highest Grade Or Level Of School You Have Completed Or The Highest Degree You Have Received? 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 No [email or web address] Information not available 10/07/2021 Do You Use Your Seat Belt Or Car Seat Routinely? Yes [email or web address] Information not available 10/07/2021 Do You Have Smoke And Carbon Monoxide Detectors In Your Home? Yes [email or web address] Information not available 10/07/2021 At What Age Did You Start Smoking Tobacco? 21 [email or web address] Information not available 10/07/2021 How Much Tobacco Do You Smoke? No [email or web address] Information not available 10/07/2021 Do You Feel Stressed (tense, Restless, Nervous, Or Anxious, Or Unable To Sleep At Night)? [id number] [email or web address] Information not available 10/07/2021 Do You Use Any Illicit Or Recreational Drugs? No Information not available 10/07/2021 Do You Use Sunscreen Routinely? No [email or web address] Information not available 10/07/2021 Has Tobacco Cessation Counseling Been Provided? No [email or web address] Information not available 11/30/2021 How Many Years Have You Smoked Tobacco? 4 [email or web address] Information not available 10/07/2021 Have You Used IV Drugs? No [email or web address] Information not available 10/07/2021 Do You Or Have You Ever Used Any Other Forms Of Tobacco Or Nicotine? No [email or web address] Information not available 11/30/2021 Sex: Unknown Functional Status Question Answer Note LastModified by Organizat ion Details LastModified Time Do you have difficulty walking or climbing stairs? No [email or web address] Information not available 11/30/2021 Are you able to walk? YESWOREST [email or web address] Information not available 10/07/2021 Are you able to care for yourself? Yes Information not available 11/30/2021 Do you have difficulty dressing or bathing? No [email or web address] Information not available 11/30/2021 What is your exercise level? Occasional [email or web address] Information not available 10/07/2021 Mental Status None recorded. Family History Relationship Description Onset Age of this Age Resolved Age Notes LastModified by Organization Details LastModified Time Mother Malignant tumor of breast [email or web address] Not available 10/07 17:28:24 Mother Malignant tumor of colon [email or web address] Not available 10/07 17:30:24 Mother Hypertensive disorder [email or web address] Not available 10/07 17:47:14 Mother Heart disease [email or web address] Not available 10/07 17:47:49 Mother Hypercholest erolemia [email or web address] Not available 10/07 17:48:33 Mother Malignant neoplasm of uterus [email or web address] Not available 10/07 17:49:07 Sister Malignant tumor of ovary [email or web address] Not available 10/07 17:28:43 Sister Hypertensive disorder [email or web address] Not available 10/07 17:47:14 Sister Malignant neoplasm of uterus [email or web address] Not available 10/07 17:49:26 Sister Disorder of thyroid gland Not available 10/07 17:49:42 Father Malignant tumor of prostate Not available 2021 09:44:01 Father Hypertensive disorder [email or web address] Not available 10/07 17:47:14 Father Heart disease [email or web address] Not available 10/07 17:47:58 Father Hypercholest erolemia [email or web address] Not available 10/07 17:48:33 Unspecified Relation Family history of malignant neoplasm of endometrium MATERN AL NEICE [email or web address] Not available 11/30/2021 09:44:01 Paternal Grandfather Leukemia [email or web address] Not available 09:44:01 Paternal Aunt Diabetes mellitus [email or web address] Not available 10/07 17:49:50 Maternal Uncle Chronic hepatitis [email or web address] Not available 2021 09:44:01 Notes:Father: Cardiovascular disease, High cholesterol, Hypertension, Diabetes mellitus Maternal uncle: Hepatitis Mother: High cholesterol, Cancer, colon, Cardiovascular disease, Cancer, uterine, Hypertension, Cancer, breast Paternal aunt: Diabetes mellitus Paternal grandfather: Leukemia Sister: Thyroid disease, Cancer, uterine, Hypertension Medical History Condition Response Allergies (Food, seasonal, environmental ) Y Other Y Breast Cancer N Drug/Latex Allergies/Reactions N Blood Transfusion N Dermatologic Disorders N Lung Disease N Defects or Inherited Disease N Breast Problem N Gestational Diabetes N Hematologic disorders N Anesthesia Complications N History of STI Y Deep Vein Thrombosis N Polycystic ovary syndrome N Anxiety Disorder Y Autoimmune disease N Arthritis Y Infertility Y Polyps N Acid Reflux (GERD) Y History of abnormal pap Y Cancer N Stroke N Varicosities N Neurologic/Epilepsy Y Endometriosis N High Cholesterol N Headaches Y Fibromyalgia N Kidney Disease N Heart Problems N Kidney or Bladder Problems N Thyroid Problems N GI Problems N Eating Disorder N Anemia N Art (IVF or FET) N Psychiatric Illness N Ovarian Cancer N Diabetes N Pulmonary (TB, Asthma) N Hepatitis/Liver Disease N No Past Medical History N Eczema N Urinary Tract Infection N Abuse/Domestic Violence N Asthma Y Trauma/Violence N Depression/ depression N Heart Disease N Pre-Eclampsia N Hypertension N Osteoporosis Y Thrombophilias N Gynecological History Statement/Question Response Abnormal Pap Yes Date of Last Mammogram 06/30/2013 Date of LMP 06/18/2003 On BCP's at Conception? N N STIs/STDs Y HPV Vaccine N Colposcopy 11/30/2021 Current Control Method Hysterectom y Age at First Child 21 Date of Last Colonoscopy 06/18/2018 Sexually Active? N Date of DEXA bone scan Age of first menstrual cycle 18 Date of Last Pap Smear 10/07/2021 Sexual Problems? N LMP Unknown N Obstetrics History GPAL:G 1 P 1 0 0 0 Type Value Full Term 1 Living 0 Total 1 Past Encounters Encounter ID Performer Location Encounter Start Date Encounter Closed Date Diagnosis/Indication Diagnosis SNOMED-CT Code Diagnosis ICD10 Code Diagnosis Note [id number] Jackie Westfall CNM [place] [address] [address] 10/07/2021 15:52:18 10/07/2021 17:00:55 Gynecologic examination 33400017 Z01.419 [id number] Jackie Westfall CNM [place] [address] [address] 11/30/2021 09:42:48 11/30/2021 10:23:16 Health Concerns Section Related Observation LastModified by Organization Detai ls LastModified Time None Recorded Concern Status LastModified by Organization Details LastModified Time None Recorded Advance Directives Directive N: Payers Encounter Date Sequence Insurance Name Policy Number Policy Pires Covered Member ID Pires Member ID Guarantor Name 10/07/2021 1 [facility] [id number] Chloé Huerta [id number] Chloé Huerta 11/30/2021 1 [facility] [id number] Chloé Huerta [id number] Chloé Huerta Notes Date Note Type Note Provider Name and Address Organization Details Recorded Time 10/07/2021 text/html Annual GYNReport ed bypatient.Breast:N o breast pain; No breast lump; No nipple discharge Sexual complaints:No sexual complaints; No pain during intercourse; Normal libido Menopausal Symptoms:No menopausal symptoms; Normal vaginal lubrication Psychological symptoms:No depression; No anxiety; No PMDD Preventive measures:Encourage self breast examination; Encourage regular exercise; Encourage no tobacco use; Encourage regular mammograms starting age 41Notes:fm hx high blood pressure, on fosomax x 5 years, needs rpt dexa last pap +hpv, partial hyst, cervix not removed, no c/o bladder leakage Jackie Westfall CNM [address], [place], [address], [facility] 10/07/2021 16:52:39 11/30/2021 text/html no visit, no charge being referred to claims coordinator onc at [facility], hx hysterectomy Jackie Westfall CNM [address], [place], [address], [facility] 11/30/2021 10:19:54 OBGyn Episode Ob Episode Information Episode Created Date Number of Fetuses Patient Bloodtype Patient rh Status Prepregnancy Weight lbs Domestic Partner Domestic Partner Phone Father Name Nocturnist Status 10/08/19 22 1 CLOSED Fetus Data First Name Last Name Admitted to NICU Weight (g) Sex Living Outcome Pediatric Complications Fetus ID Race Codes Race Delivery Type 2863.07 [id number] F Full Term [id number] Vaginal Delivery Tay Calculation Initial Tay Date Initial Exam Date Initial Exam Provider Initial Ultrasound Date Last Menstrual Period Date Ultra Sound Weeks Gestation 0 Eighteen To Twenty Week Tay Update Ultra Sound Date Fundal Height At Umbil Quickening Date Ultra Sound Latest Weeks Gestation Final Tay Confirmed By Final Tay Confirmed Date Final Tay Date Ultra Sound Latest Days Gestation 0 0 Menstrual History Last Menstrual Date Menses Monthly On Bcp Conception Prior Menses Frequency Hcg Plus Date Menarche Onset Age Delivery Information Delivery Date Delivery Type Labor Anesthesia Weeks Gestation Incision Type Labor Labor Length Hrs Delivered By Post Complications Tubal Sterilization Discharge Date Comments 2 40 BABY DUE TO HEAD TRAUMA Discharge Information Feeding Method Contraceptive Method Maternal HG B and HCT Levels
--- OUTSIDE RECORDS SUMMARY | 2024-09-17 20:51 | XMS_ITS | Encounter Summary ---
Author Organization [facility] Address [address] [place] [address] Care Team Providers Care Financial Specialist Name Role Phone Soniya Owens Primary Care Provider [phone] Encounter Details Date Type Department Care Team ([facility] Contact Info) Description 01/25/2021 Runic Gamest Message Enc [facility] Medical [facility] Family & Internal Medicine [facility] [address] [place] [address] Soniya Owens FNP [address] [place], [place] [id number] RE: Other Social History Tobacco Use Types Packs/Day Years Used Date Smoking Tobacco: Former Smokeless Tobacco: Never Comments:quit October 2020 only smoked a few per week Alcohol Use Standard Drinks/Week Comments Not Currently 0 (1 standard drink = 0.6 oz pur e alcohol) PHQ-2 Answer Date Recorded PHQ-2 Score - If the patient scores above 3, please move on to questions 3-9 3 01/25/2021 Comments No Sex and Gender Information Value Date Recorded Sex Assigned at Not on file Legal Sex Female 2:48 PM CDT Gender Identity Female 03/10/2022 9:11 AM CDT Sexual Orientation Not on file COVID-19 Exposure Response Date Recorded In the last month, have you been in contact with someone who was confirmed or suspected to have Coronavirus / COVID-19? Unable to assess 01/25/2021 7:04 AM CDT documented as of this encounter Plan of Treatment Upcoming Encounters Date Type Department Care Team ([facility] Contact Info) Description 05/18/2025 9:30 AM INSTRUCTOR OF SPANISH Office Visit [facility] [address] [place] [address] Adarsh Forman MD Three [facility], [address] [place] [address] documented as of this encounter Visit Diagnoses Not on filedocumented in this encounter Additional Health Concerns Infection Onset Date Last Indicated Resolved Time COVID-19 Rule Out 01/25/2021 01/25/2021 01/25/2021 3:06 PM CDT COVID-19 Confirmed 01/25/2021 01/25/2021 12:33 AM CDT COVID-19 Rule Out 03/08/2022 03/08/2022 03/08/2022 11:46 AM CDT COVID-19 Confirmed 03/08/2022 03/08/2022 12:32 AM CDT COVID-19 Rule Out 09/15/2022 09/15/2022 09/15/2022 11:11 AM CDT COVID-19 Rule Out 09/15/2022 09/15/2022 09/17/2022 11:51 AM CDT Assessment Noted Time PHQ-9 Depression Total Score: 4 01/26/20 21 12:57 PM CDT documented as of this encounter Care Teams Financial Specialist Relationship Specialty Start Date End Date Soniya Owens FNP [address] [place] [address] PCP - General Nurse Practitioner Family 12/12/19 documented as of this encounter
--- OUTSIDE RECORDS SUMMARY | 2024-09-17 20:51 | XMS_ITS | Clinical Summary ---
Author Organization [facility] Address [address] [place] [address] Care Team Providers Care Invoice Control Clerk Name Role Phone Soniya Owens Primary Care Provider [phone] Allergies No known active allergies Medications ondansetron 8 MG disintegrating tablet TAKE 1 TABLET BY MOUTH EERY 8 HOURS NEEDED FOR NAUSEA 11/30/19 20 Active ketorolac (TORADOL) 10 MG tabletIndications: Migraine Take 1 tablet (10 mg total) by mouth every 6 (six) hours as needed for Pain. Appointment required for future refills 20 tablet 2 03/27/20 23 Active alendronate (FOSAMAX) 70 MG tabletIndications: Osteoporosis without current pathological fracture, unspecified osteoporosis type TAKE 1 TABLET ONCE WEEKLY, IN THE MORNING 30 MINUTES BEFORE 1ST FOOD, BEVERAGE, MED OF THE DAY 4 tablet 11 03/13/20 24 Active busPIRone (BUSPAR) 5 MG tabletIndications: Anxiety Take 1 tablet (5 mg total) by mouth 2 (two) times daily. 60 tablet 5 03/13/20 24 Active meloxicam (MOBIC) 15 MG tabletIndications: Primary osteoarthritis involving multiple joints Take 1 tablet (15 mg total) by mouth daily. 30 tablet 11 03/13/20 24 Active omeprazole (PRILOSEC) 40 MG capsuleIndications :Gastroesophageal reflux disease, unspecified whether esophagitis present Take 1 capsule (40 mg total) by mouth daily. 90 capsule 3 03/13/20 24 Active vitamin D2, ergocalciferol, (DRISDOL) 1.25 mg capsuleIndications :Vitamin D deficiency Take 1 capsule (1.25 mg total) by mouth once a week. 12 capsule 3 03/13/20 24 Active losartan (COZAAR) 50 MG tabletIndications: Primary hypertension Take 1 tablet (50 mg total) by mouth daily. NEW DOSE 30 tablet 3 03/14/20 24 Active atorvastatin (LIPITOR) 20 MG tablet Take 1 tablet (20 mg total) by mouth nightly at bedtime. 30 tablet 3 03/14/20 24 Active Active Problems Problem Noted Date Diagnosed Date Vitamin D deficiency 03/13/2024 Chronic migraine without aur a without status migrainosus, not intractable 03/13/2024 Primary hypertension 12/08/2022 Overweight with body mass in dex (BMI) of 25 to 25.9 in adult 12/08/2022 Post-menopausal 12/08/2022 H/O left wrist surgery 02/16/2021 Influenza vaccination declined by patient 2019 Current every day smoker 01/22/2020 Anxiety 01/19/2020 Osteoporosis without current pathological fracture, unspecified osteoporosis type 01/19/2020 Gastroesophageal reflux dise ase, unspecified whether esophagitis present 01/19/2020 Primary osteoarthritis, unspecified site 020 Abnormal findings on diagnostic imaging of breas t 02/04/2014 Breast disorder 02/03/2014 Resolved Problems Problem Noted Date Diagnosed Date Resolved Date Body mass index (BMI) of 24. 0 to 24.9 in adult 01/19/2020 03/13/2024 Immunizations Name Administration Dates Next Due Influenza Adult (Generic) 06/24/2019 PFIZER COVID-19 (ORIGINAL FO RMULATION, PURPLE CAP) mRNA, LNP-S, PF, 30 MCG/0.3 ML DOSE 07/18/2021,06/27/2021 Tdap (Generic) 06/04/2018 Family History Medical History Relation Comments Alzheimers Father Cancer Father Dementia Father Diabetes Father Heart Disease Father Hypertension Father Cancer Mother colon,vag, and b reast Heart Disease Mother Alcohol Abuse Paternal Grandfather Cancer Paternal Grandfather Cancer Sister cervical Kidney Disease Sister Relation Status Comments Father Mother Paternal Grandfather Sister Social History Tobacco Use Types Packs/Day Years Used Date Smoking Tobacco: Former Passive Smoke Exposure: Current Smokeless Tobacco: Never Tobacco Cessation:Counseling Given: Not Answered Comments:quit October 2020 only smoked a few per week Alcohol Use Standard Drinks/Week Comments Not Currently 0 (1 standard drink = 0.6 oz pur e alcohol) PHQ-2 Answer Date Recorded Patient Health Questionnaire-2 Score 0 12/08/2022 Comments No Sex and Gender Information Value Date Recorded Sex Assigned at Not on file Legal Sex Female 2:48 PM CDT Gender Identity Female 03/10/2022 9:11 AM CDT Sexual Orientation Not on file Last Filed Vital Signs Vital Sign Reading Time Taken Comments Blood Pressure 132/74 05/12/2024 9:14 AM SUPPLY TEACHER Pulse 68 05/12/2024 9:14 AM SUPPLY TEACHER Temperature 37.2 C (98.9 F) 03/13/2024 10:02 AM CDT Respiratory Rate 18 03/13/2024 10:02 AM CDT Oxygen Saturation 98% 05/12/2024 9:14 AM SUPPLY TEACHER Inhaled Oxygen Concentration - - Weight 74.4 kg (164 lb) 05/12/2024 9:14 AM SUPPLY TEACHER Height 167.6 cm (5' 6 ) 05/12/2024 9:14 AM SUPPLY TEACHER Body Mass Index 26.47 05/12/2024 9:14 AM SUPPLY TEACHER Plan of Treatment Upcoming Encounters Date Type Department Care Team (Late st Contact Info) Description 05/18/2025 9:30 AM SUPPLY TEACHER Office Visit [facility] [address] [address] [place] [address] Adarsh Forman MD [facility], [address] [place] [address] Health Maintenance Due Date Last Done Comments Annual Physical 1963 Pneumococcal Vaccine: Pediatrics (0 to 5 Years) and At-Risk Patients (6 to 64 Years) (1 of 2 - PCV) 10/14/1967 Hepatitis C 10/14/1979 Colorectal Cancer Screening Colonoscopy (10 Years) 07/09/2023 07/09/2018 PHQ-2 (Physician [place]) 06/18/2024 12/08/2022 COVID-19 Vaccine (3 - 2023-2 5 season) 2025 07/18/2021, 06/27/2021 Postponed from 02/17/2024 (Going to Outside Clinic) RSV Immunization or 60+ Years (1 - Risk 60-74 years 1-dose series) 03/13/2025 Postponed from 09/17 (No Insurance Coverage) Zoster Vaccines (1 of 2) 03/13/2025 Pos tponed from 10/14/2011 (Going to Outside Clinic) Mammogram Screening 03/16/2025 03/16/2023, 09/13/2017 DTaP, Tdap and Td Vaccines ( 2 - Td or Tdap) 06/04/2028 06/04/2018 Meningococcal B Vaccine Aged Out No l onger eligible based on patient's age to complete this topic Meningococcal Vaccine Aged Out No jennifer prasad eligible based on patient's age to complete this topic RSV Immunizations Under 20 Months Aged Out No longer eligible b ased on patient's age to complete this topic Procedures Procedure Name Priority Date/Time Associated Diagnosis Comments MAMMOGRAM GENERIC (SCAN ORDER) 03/16/2023 COLONOSCOPY GENERIC (SCAN ORDER) 07/09/2018 from Last 3 Months or Most Recently Relevant to Health Maintenance Results * MAMMOGRAM GENERIC (03/16/2023) Anatomical Region Laterality Modality Other 03/16/2023 [facility] Scanned SCANNING Final Resu lt * COLONOSCOPY GENERIC (SCAN ORDER) (07/09/2018) 07/09/2018 [facility] Scanned SCANNING Final Resu lt from Last 3 Months or Most Recently Relevant to Health Maintenance Insurance [facility] Care Teams Invoice Control Clerk Relationship Specialty Start Date End Date Soniya Owens FNP [address] [place] [id number] PCP - General Nurse Practitioner Family 12/12/19
--- OUTSIDE RECORDS SUMMARY | 2024-09-17 20:51 | XMS_ITS | Continuity of Care Document ---
Author Organization [facility] Address [address] [place] [address] [address] [place] [address] Phone Care Team Providers Care Inspector Balance Bridge Name Role Phone Brenda Ortega Unavailable Unavailable Advance Directives Directive Yes / No Effective Date File Name No Information Encounters Encounter Description Practice Location Reason(s) For Visit Diagnoses Date Provider Providers Copied on Encounter [facility], [id number] [place] [address] [address], [place], [place], [id number], [place] tel:[phone] [facility] No Information [address] Shannon Gutierrez. [address] , [address], [place], [address], [place]. tel:[phone] Family History Family Member Type Diagnosis Age At Onset No Information Payers Payer name Insurance type Covered constitution party ID Authoriza tieddie(s) [facility] CI [id number] Social History Type Description Quantity Date Captured Comments Sex Female Smoking Status No Information Chief Complaint And Reason For Visit No Information Reason For Referral Reason For Referral No Information History Of Present Illness Encounter Date Complaint History Of Prese nt Illness No Information Functional Status Date Functional Assessmen t No Information Instructions Date Instruction Additional Infor mation No Information Assessments Type Assessment Date No Information Patient Care Teams Name Effective Dates (start - stop) Status Members No Information
[2024-09-17 20:52] VITALS: BP 150/90; PULSE 89; RESP 14; TEMP 37.1; O2SAT 99
--- OUTSIDE RECORDS SUMMARY | 2024-09-17 21:15 | XMS_ITS | Continuity of Care Document ---
Author Organization [facility] Address [address] [place] [address] [address] [place] [address] Phone Care Team Providers Care Primary School Principal Name Role Phone Brenda Ortega Unavailable Unavailable Advance Directives Directive Yes / No Effective Date File Name No Information Encounters Encounter Description Practice Location Reason(s) For Visit Diagnoses Date Provider Providers Copied on Encounter [facility], [id number] [place] [address] [address], [place], [place], [id number], [place] tel:[phone] [facility] No Information [address] Shannon Gutierrez. [address] , [address], [place], [address], [place]. tel:[phone] Family History Family Member Type Diagnosis Age At Onset No Information Payers Payer name Insurance type Covered alliance party ID Authoriza tieddie(s) [facility] CI [id number] Social History Type Description Quantity Date Captured [...]
--- OUTSIDE RECORDS SUMMARY | 2024-09-17 21:16 | XMS_ITS | Encounter Summary ---
Author Organization [facility] Address [address] [place] [address] Care Team Providers Care Clothing Patternmaker Name Role Phone Soniya Owens Primary Care Provider [phone] Encounter Details Date Type Department Care Team ([facility] Contact Info) Description 01/25/2021 nVoqt Message Enc [facility] Internal [facility] [address] [place] [address] Soniya Owens FNP [address] [place], [place] [phone] RE: Other Social History Tobacco Use Types [...] Upcoming Encounters Date Type Department Care Team ([facility] Contact Info) Description 05/18/2025 9:30 AM TECHNICIAN INVENTORY SPECIALIST Office Visit [facility] [address] [place] [address] Adarsh Forman MD [facility], [address] [place] [address] documented as of this encounter Visit Diagnoses [...] documented as of this encounter Care Teams Clothing Patternmaker Relationship Specialty Start Date End Date Soniya Owens FNP [address] [place] [address] PCP - General Nurse Practitioner Family 12/12/19 documented as of this encounter
--- OUTSIDE RECORDS SUMMARY | 2024-09-17 21:16 | XMS_ITS | Clinical Summary ---
Author Organization [facility] Address [address] [place] [address] Care Team Providers Care Water Treatment Operator Name Role Phone Soniya Owens Primary Care Provider [phone] Allergies No known active allergies Medications ondansetron [...] Comments Blood Pressure 132/74 05/12/2024 9:14 AM VIBRATION ENGINEER Pulse 68 05/12/2024 9:14 AM VIBRATION ENGINEER Temperature 37.2 C (98.9 F) 03/13/2024 10:02 AM CDT Respiratory Rate 18 03/13/2024 10:02 AM CDT Oxygen Saturation 98% 05/12/2024 9:14 AM VIBRATION ENGINEER Inhaled Oxygen Concentration - - Weight 74.4 kg (164 lb) 05/12/2024 9:14 AM VIBRATION ENGINEER Height 167.6 cm (5' 6 ) 05/12/2024 9:14 AM VIBRATION ENGINEER Body Mass Index 26.47 05/12/2024 9:14 AM VIBRATION ENGINEER Plan of Treatment Upcoming Encounters Date Type Department Care Team (Late st Contact Info) Description 05/18/2025 9:30 AM VIBRATION ENGINEER Office Visit [facility] [address] [address] [place] [address] Adarsh Forman MD [facility], [address] [place] [address] Health Maintenance Due Date Last Done Comments Annual Physical 1963 Pneumococcal Vaccine: Pediatrics (0 to 5 Years) and At-Risk Patients (6 to 64 Years) (1 of 2 - PCV) 10/14/1967 Hepatitis C 10/14/1979 Colorectal Cancer Screening Colonoscopy (10 Years) 07/09/2023 07/09/2018 PHQ-2 (Physician [place]) 06/18/2024 12/08/2022 COVID-19 Vaccine (3 - 2023-2 [...] Most Recently Relevant to Health Maintenance Insurance [facility] Care Teams Water Treatment Operator Relationship Specialty Start Date End Date Soniya Owens FNP [address] [place] [address] PCP - General Nurse Practitioner Family 12/12/19
--- OUTSIDE RECORDS SUMMARY | 2024-09-17 21:16 | XMS_ITS | CONTINUITY OF CARE DOCUMENT ---
Author Name gary vega Address Unknown Organization [facility] Address [address] [facility] [address] [place] [address] Phone [phone] Care Team Providers Care Principal Electrical Engineer Name Role Phone Milo Guajardo MD Unavailable [phone] Milo Guajardo MD Unavailable INSURANCE PROVIDERS Payer name Policy type / Coverage type [place] red alliance party ID [facility] [id number]
--- OUTSIDE RECORDS SUMMARY | 2024-09-17 21:17 | XMS_ITS | Clinical Summary ---
Author Organization [facility] Address [address] [place] [address] Care Team Providers Care Maintenance Mgr Name Role Phone Soniya Owens NP Primary Care Provider [phone] Allergies No known active allergies Medications alendronate [...] on file Legal Sex Female 7:27 AM MARKET MASTER Gender Identity Not on file Sexual Orientation [...] patient's age to complete this topic Insurance [facility] Address: [place] [address] [facility] H[facility]/PPO Address: [place] [address] Care Teams Maintenance Mgr Relationship Specialty Start Date End Date Soniya Owens NP [address] [place] [address] PCP - General Nurse Practitioner 02/16/21
--- NOTE | 2024-09-17 21:35 | ED_ITS ---
HPI - Headache General Chief Complaint: Headache Stated Complaint: migraine, n/v Time Seen by Provider: 09/17/24 21:04 History of Present Illness HPI Narrative: 63-year-old female with a past medical history including migraine headaches. 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 [place] very classical for normal migraines and was behind both eyes. Some associated photophobia. She took her normal migraine headache medication which did alleviate the symptoms but they recurred. Patient denies any exertional component to the onset of her symptoms. Does endorse some nausea but no vomiting. No fever chills. No sick contacts and she was otherwise in her normal state of health. No head trauma or injuries. Patient presents to the ER for evaluation. Related Data Home Medications ?Medication ?Instructions ?Recorded ?Confirmed ?Last Taken ?Type buspirone 5 mg tablet 5 mg PO BID 02/17/21 05/11/21 02/16/21 History ondansetron 4 mg disintegrating 4 mg PO Q8H 02/17/21 05/11/21 02/16/21 History tablet Allergies Allergy/AdvReac Type Severity Reaction Status Date / Time No Known Allergies Allergy Verified 09/17/24 20:50 Review of Systems Review of Systems: As reviewed above in HPI [facility] Past Medical History Medical History Arthritis Elevated TSH Essential hypertension Osteoporosis without current pathological fracture Vitamin D deficiency Surgical History Surgical History Fracture of left distal radius ORIF 02-17-2021 Right patella fracture ORIF and subsequent hardware removal 2010 Right femoral shaft fracture IM [facility] Family History Family History Mother Hypertension Family history of coronary artery disease Family history of malignant neoplasm of breast in first degree relative, Onset Age: 68 Carcinoma of colon, Onset Age: 35 Father Diabetes mellitus Hypertension Family history of coronary artery disease Sibling Family history of kidney disease Social History Social History Smoking status: Former smoker Second hand tobacco smoke exposure: Yes Smoking end date: 06/18/14 Alcohol intake: current Spiritual care concerns: No Exam Narrative: GENERAL: [Well-appearing, well-nourished, and in no acute distress.] HEAD: [Normocephalic, atraumatic.] EYES: [PERRLA and EOMI.] ENT: Nares clear, no rhinorrhea or epistaxis. Mucous membranes moist. NECK: Supple. CHEST: [Clear to auscultation. No respiratory distress.] HEART: [Regular rate and rhythm]. No murmur heard. [Normal peripheral pulses.] ABDOMEN: [Soft, nondistended], [nontender], [No rigidity or guarding] EXTREMITIES: Normal range of motion. [No edema.] SKIN: Warm, dry, no rash. NEURO: [No focal deficits]. Alert and oriented [x3.] PSYCH: [Normal mood and affect.] Course Vital Signs Vital signs: Vital Signs Temperature 37.1 C 09/17/24 20:52 Pulse Rate 89 09/17/24 20:52 Respiratory Rate 14 09/17/24 20:52 Blood Pressure 150/90 H 09/17/24 20:52 Pulse Oximetry 99 09/17/24 20:52 Temperature 37.1 C 09/17/24 20:52 Pulse Rate 78 09/17/24 22:02 Respiratory Rate 18 09/17/24 22:02 Blood Pressure 141/90 H 09/17/24 22:02 Pulse Oximetry 94 09/17/24 22:02 MDM - Headache MDM Narrative Medical decision making narrative: 63-year-old otherwise healthy female with history of migraine headaches presents with a migraine headache. She is otherwise well-appearing, not any acute distress, has normal vital signs. No signs of meningismus. Normal neurological assessment. Moving all extremities and has normal gait. She reports some mild nausea without vomiting. Took some of her migraine headache medications that did initially alleviate the symptoms but they recurred. No exertional component to her symptoms. Suspicion presently is for migraine headache versus tension headache, low suspicion for new onset headache from other causes such as intracranial mass or hemorrhage. The CT of the head was obtained. She was treated with migraine cocktail with Compazine IM, diphenhydramine p.o., Decadron IM and re-evaluated. CT of the head was independently reviewed by myself and I do not appreciate any intracranial masses or hemorrhage. Radiology confirms no acute process. Viral panel was negative. Patient was re-evaluated complete symptomatic resolution. No residual headache. She is stable for discharge at this time. Medical Records Attestation: I reviewed the patient's medical records. Lab Data Attestation: I reviewed the patient's lab results. Labs: Lab Results 09/17/24 Range/Units 21:53 Influenza A (RT-PCR) Negative (Negative) Influenza B (RT-PCR) Negative (Negative) RSV (RT-PCR) Negative (Negative) SARS-CoV-2 RNA (RT-PCR) Negative (Negative) Imaging Data Attestation: I personally reviewed and interpreted this imaging study as follows: My impression: Impressions Head CT 09/17/24 21:28 Impression: No significant abnormality seen. Discharge Plan Discharge Clinical Impression: Migraine, Headache Patient Disposition: Home, Self-Care Condition: Stable Instructions: Antibiotic Form, Acute Headache (ED) Additional Instructions: Follow-up with your regular doctor. Return with any emergent concerns. Patient Language: Norwegian Prescriptions: No Action buspirone 5 mg tablet 5 mg PO BID ondansetron 4 mg tablet,disintegrating 4 mg PO Q8H alendronate 70 mg tablet See Rx Instructions .ROUTE .COMPLEX Qty: 12 2RF Dose Instruction: TAKE 1 TABLET ONCE WEEKLY, IN THE MORNING 30 MINUTES BEFORE 1ST FOOD, BEVERAGE, MED OF THE DAY Rx Instructions: TAKE 1 TABLET ONCE WEEKLY, IN THE MORNING 30 MINUTES BEFORE 1ST FOOD, BEVERAGE, MED OF THE DAY omeprazole 40 mg capsule,delayed release(DR/EC) 40 mg PO DAILY Qty: 30 1RF meloxicam 15 mg tablet 15 mg PO DAILY Qty: 30 2RF ergocalciferol (vitamin D2) [Vitamin D2] 1,250 mcg (50,000 unit) capsule 50,000 unit PO WEEKLY Qty: 4 6RF Follow-up/Referrals: RAND,GURDEEP MARQUIS [Primary Care Provider] - Time of Disposition: 22:57
[2024-09-17] MEDS: PROCHLORPERAZINE EDISYLATE 10 MG/2 ML VIAL IM (21:42)
[2024-09-17] MEDS: diphenhydrAMINE HCl CAP 25 MG CAPSULE PO (21:42)
[2024-09-17] MEDS: dexAMETHasone SOD PHOS INJ 10 MG/ML 1 ML VIAL IM (21:42)
[2024-09-17 22:02] VITALS: BP 141/90; PULSE 78; RESP 18; O2SAT 94
[2024-09-17 22:33] LABS: Influenza A QL RT-PCR Negative (Negative); Influenza B QL RT-PCR Negative (Negative); RSV RNA, RT-PCR Negative (Negative); SARS-CoV-2 RNA PCR Negative (Negative)
== END 2024-09-17 23:04 | disposition home or self-care (01) ==
PROVIDERS: Emergency Provider Student in an Organized Health Care Education/Training Program; PCP Nurse Practitioner Family
DX: G43.909 Migraine, unspecified, not intractable, without status migrainosus (principal); Z20.822 Contact with and (suspected) exposure to COVID-19; I10 Essential (primary) hypertension; E55.9 Vitamin D deficiency, unspecified; M81.0 Age-related osteoporosis without current pathological fracture; M19.90 Unspecified osteoarthritis, unspecified site; Z87.891 Personal history of nicotine dependence; Z79.899 Other long term (current) drug therapy
CPT/HCPCS: 70450; 87637; 96372; 99284; A9270; J0780; J1100

== ENCOUNTER 2024-12-20 23:30 | Emergency (ER) | payer BC, SELFPAY ==
--- NOTE | ~2024-12-20 | CT_ITS ---
CLINICAL INDICATION: Right hip pain, atraumatic. COMPARISON: Reference is made to a plain film examination of the right hip dated 08/23/2019. TECHNIQUE: Computed tomography (CT) of the pelvis was performed without intravenous contrast. The dos e-length product was 460.74 mGy-cm. 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 No periprosthetic fracture is identified. When compared with previous radiograph, the hardware is unchanged in positioning. Multiple lucencies within the right femoral head with surrounding hyperattenuation suggesting avascul ar necrosis. 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 Recommend plain film evaluation as the hardware tends to cause metallic streak artifact on this CT ex amination which could simulate loosening. Reviewed, dictated and finalized at location A. 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 Recommend plain film evaluation as the hardware tends to cause metallic streak artifact on this CT examination which could simulate loosening.
--- OUTSIDE RECORDS SUMMARY | 2024-12-20 23:32 | XMS_ITS | Referral Summary ---
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
--- OUTSIDE RECORDS SUMMARY | 2024-12-20 23:32 | XMS_ITS | Clinical Summary ---
Author Organization [facility] Address [address] [place] [address] Care Team Providers Care Supervisor Die Casting Name Role Phone Soniya Owens Primary Care Provider [phone] Allergies No known active allergies Medications ondansetron [...] to 24.9 in adult 01/19/2020 03/13/2024 Immunizations Immunization Administration Dates Next Due Influenza Adult (Generic) [...] Comments Blood Pressure 132/74 05/12/2024 9:14 AM PROP DRAWER Pulse 68 05/12/2024 9:14 AM PROP DRAWER Temperature 37.2 C (98.9 F) 03/13/2024 10:02 AM CDT Respiratory Rate 18 03/13/2024 10:02 AM CDT Oxygen Saturation 98% 05/12/2024 9:14 AM PROP DRAWER Inhaled Oxygen Concentration - - Weight 74.4 kg (164 lb) 05/12/2024 9:14 AM PROP DRAWER Height 167.6 cm (5' 6) 05/12/2024 9:14 AM PROP DRAWER Body Mass Index 26.47 05/12/2024 9:14 AM PROP DRAWER Plan of Treatment Upcoming Encounters Date Type Department Care Team (Late st Contact Info) Description 05/18/2025 9:30 AM PROP DRAWER Office Visit [facility] [address] [place] [address] Adarsh Forman MD [facility], [address] [place] [address] Health Maintenance Due Date Last Done Comments Annual Physical 1963 Hepatitis C 10/14/1979 Pneumococcal Vaccine: 50+ Years (1 of 2 - PCV) 1980 Colorectal Cancer Screening Colonoscopy (10 Years) 07/09/2023 07/09/2018 PHQ-2 (Physician [place]) 06/18/2024 12/08/2022 COVID-19 Vaccine (3 2023-2 5 season) 2025 07/18/2021, 06/27/2021 Postponed [...] Anatomical Region Laterality Modality Other 03/16/2023 [facility] Scanned SCANNING Final Resu lt * COLONOSCOPY GENERIC (SCAN ORDER) (07/09/2018) 07/09/2018 [facility] Scanned SCANNING Final Resu lt from Last 3 Months or Most Recently Relevant to Health Maintenance Insurance [facility] Care Teams Supervisor Die Casting Relationship Specialty Start Date End Date Soniya Owens FNP [address] [place] [address] PCP - General Nurse Practitioner Family 12/12/19
--- OUTSIDE RECORDS SUMMARY | 2024-12-20 23:32 | XMS_ITS | Encounter Summary ---
Author Organization [facility] Address [address] [place] [address] Care Team Providers Care Glass Scullion Name Role Phone Soniya Owens Primary Care Provider [phone] Encounter Details Date Type Department Care Team ([facility] Contact Info) Description 01/25/2021 [employer]t Message Enc [facility] Family & Internal Medicine [facility] [address] [place] [address] Soniya Owens FNP [address] [place], [place] [id number] RE: Other Social History Tobacco Use Types [...] Upcoming Encounters Date Type Department Care Team ([facility] Contact Info) Description 05/18/2025 9:30 AM CATASTROPHE CLAIMS SUPERVISOR Office Visit [facility] [address] [place] [address] Adarsh Forman MD [facility], [address] [place] [address] documented as of this encounter Visit Diagnoses [...] documented as of this encounter Care Teams Glass Scullion Relationship Specialty Start Date End Date Soniya Owens FNP [address] [place] [address] PCP - General Nurse Practitioner Family 12/12/19 documented as of this encounter
--- OUTSIDE RECORDS SUMMARY | 2024-12-20 23:32 | XMS_ITS | Data Portability ---
Author Organization [facility] [place] Address [address] [place] [address] Care Team Providers Care Wool Tamper Name Role Phone BENITEZ GORDILLO Primary Care [...] mammogram ordered, f/u pcp for blood pressure [email or web address] Not available 10/07/2021 16:51:03 Plan of Treatment [...] Repor t Case: [id number] Autho gonzalo gordon Provi kan: Jackie Louise, RAJWINDER Colle cted: 10/07 1624 Order ing Locat ion: [place] [facility] Recei sugar: 10/08 0200 First Scree n: Strut z, Gera am, CT Patho logis t: Rigo Tang [...] ry/Pr eviou s Pap: Type of Neopl dlaton (if appli cable ): Signi fican t Clini reny Findi ngs: Other Histo ry: Hormo iliana (if appli cable ): SUGGE STED FOLLO W-UP: Follo w up as warra nted, based on curre nt guide lines and indiv idual patie nt consi derat ions. Not Available [facility] (Lab) [address] [facility], [place], [address], 10/17/2021 14:15:06 Result Notes None recorded. Procedures Surgical History Date Name Laterality Status Provider Name and Address Organization Details Recorded Time 12/01/19 22 Colposcopy completed [facility] 11/30/2021 10:11:03 12/01/19 22 Colposcopy completed [facility] 11/30/2021 10:08:20 10/08/19 22 Date of Last Pap Smear completed [facility] 10/07/2021 17:31:07 09/17/19 21 [facility] rmvl cplx wo ecp completed [facility] 10/07/2021 17:42:37 08/17/19 21 [facility] 10/07/2021 17:42:30 06/18/19 19 Date of Last Colonoscopy completed [facility] 10/07/2021 17:33:21 06/18/19 19 Colonoscopy completed [facility] 10/07/2021 17:42:09 06/30/19 14 Date of Last Mammogram completed [facility] 10/07/2021 17:31:55 06/18/19 08 operative procedure on knee completed [facility] 10/07/2021 17:41:59 06/18/19 06 procedure on upper arm completed [facility] 10/07/2021 17:40:36 06/18/19 06 procedure on femur completed [facility] 10/07/2021 17:41:29 06/18/19 04 Partial Hysterectomy completed [facility] 10/07/2021 17:39:34 Imaging Results None recorded. [...] on of day 2018 active Prescrib ed Elsew e: Yes Loca tion: [facility] M odify By: rebecca kam DateTime : [...] Prescrib ed Elsewher e: No Locat ion: [facility] odify By: kartik edouard DateTime : 02/15/20 [...] Prescrib ed Elsewher e: Yes Loca tion: [facility] odify By: rebecca kam DateTime : 02/12/20 12 02:02:56 PM Not Available Not Available Not Available Vitals Date Recorded Body height Body mass index (BMI) Body weight Systolic And Diastolic Provider Name and Address Organization Details Last Updated DateTime 10/07/2021 165.1 cm 26.8 kg/m2 64051.37 g 173/87 mm[Hg] Liyah Glaser [facility] 10/07/2021 16:29:28 Date Recorded Body height Body mass index (BMI) Body weight Systolic And Diastolic Provider Name and Address Organization Details Last Updated DateTime 11/30/2021 165.1 cm 25.6 kg/m2 86147.22 g 148/82 mm[Hg] Liyah Glaser [facility] 11/30/2021 10:06:42 Social History Question Answer Notes LastModified by Organizat ion Details LastModified Time Tobacco Smoking Status Former Smoker Radha Chacon elisabeth, [facility] 11/30/2021 09:44:02 Do You Have An Advance Directive? No [email or web address] Information not available 10/07/2021 How Many Years Have You Consumed Alcohol? 5 doodvhtr89 Information not available 10/07/2021 Are You Blind Or Do You Have Difficulty Seeing? No [email or web address] Information not available 10/07/2021 What Is Your Level Of Caffeine Consumption? Occasional [email or web address] Information not available 10/07/2021 How Much Tobacco Do You Chew? None [email or web address] Information not available 10/07/2021 In The 14 Days Before Symptom Onset, Have You Had Close Contact With A Laboratory-confir med COVID-19 While That Case Was Ill? No [email or web address] Information not available 10/07/2021 In The 14 Days Before Symptom Onset, Have You Had Close Contact With A Person Who Is Under Investigation For COVID-19 While That Person Was Ill? No [email or web address] Information not available 10/07/2021 Have You Been To An Area Known To Be High Risk For COVID-19? No stuhunew47 Information not available 10/07/2021 Are You Deaf Or Do You Have Serious Difficulty Hearing? No yeyvfyoa72 Information not available 10/07/2021 What Type Of Diet Are You Following? REGULAR upwfhrio28 Information not available 10/07/2021 What Is The Highest Grade Or Level Of School You Have Completed Or The Highest Degree You Have Received? BW34859-8 pqmapnoq49 Information not available 10/07/2021 Do You Use Protection During Sex? No yggjdwvd14 Information not available 10/07/2021 Do You Use Your Seat Belt Or Car Seat Routinely? Yes unvrvjch88 Information not available 10/07/2021 Do You Have Smoke And Carbon Monoxide Detectors In Your Home? Yes cainzzvi93 Information not available 10/07/2021 At What Age Did You Start Smoking Tobacco? 21 qheantyk96 Information not available 10/07/2021 How Much Tobacco Do You Smoke? No uryjjvng95 Information not available 10/07/2021 Do You Use Sunscreen Routinely? No gmikleik36 Information not available 10/07/2021 Has Tobacco Cessation Counseling Been Provided? No pnkaxed80 Information not available 11/30/2021 How Many Years Have You Smoked Tobacco? 4 tiadmfyk95 Information not available 10/07/2021 Have You Used IV Drugs? No Information not available 10/07/2021 Do You Have Difficulty Walking Or Climbing Stairs? No geuoetz76 Information not available 11/30/2021 Sex: Unknown Functional Status Question Answer Note LastModified by Organizat ion Details LastModified Time Do you use any illicit or recreational drugs? No aglctkje51 Information not available 10/07/2021 Do you or have you ever used any other forms of tobacco or nicotine? No gticbxe16 Information not available 11/30/2021 What is your level of alcohol consumption? Occasional isqtaqvq00 Information not available 10/07/2021 Are you able to walk? YESWOREST ivugpdzu03 Information not available 10/07/2021 Are you able to care for yourself? 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 No elitdae04 Information not available 11/30/2021 What is your exercise level? Occasional ililmscd74 Information not available 10/07/2021 Mental Status Question Answer Note LastModified by Organization D etails LastModified Time Do you feel stressed (tense, restless, nervous, or anxious, or unable to sleep at night)? [id number] xknuwzaf72 Information not available 10/07/2021 Family History Relationship Description Onset Age of this Age Resolved Age Notes LastModified by Organization Details LastModified Time Mother Malignant tumor of breast krkuxikw02 Not available 10/07 17:28:24 Mother Malignant tumor of colon iqeitotf59 Not available 10/07 17:30:24 Mother Hypertensive disorder kfebpagp29 Not available 10/07 17:47:14 Mother Heart disease colipqvi39 Not available 10/07 17:47:49 Mother Hypercholest erolemia szvruqfe31 Not available 10/07 17:48:33 Mother Malignant neoplasm of uterus hbjiavax11 Not available 10/07 17:49:07 Sister Malignant neoplasm of ovary wumyqnif18 Not available 10/07 17:28:43 Sister Hypertensive disorder awywpuzi87 Not available 10/07 17:47:14 Sister Malignant neoplasm of uterus Not available 10/07 17:49:26 Sister Disorder of thyroid gland uttzgftp73 Not available 10/07 17:49:42 Father Malignant neoplasm of prostate lcraeyy64 Not available 2021 09:44:01 Father Hypertensive disorder lhldabyx72 Not available 10/07 17:47:14 Father Heart disease iykimnkd81 Not available 10/07 17:47:58 Father Hypercholest erolemia lfecbtas33 Not available 10/07 17:48:33 Unspecified Relation Family history of malignant neoplasm of endometrium MATERN AL NEICE ujkdndm34 Not available 11/30/2021 09:44:01 Paternal Grandfather Leukemia fzbtuja09 Not available 09:44:01 Paternal Aunt Diabetes mellitus ldrhyuok79 Not available 10/07 17:49:50 Maternal Uncle Chronic hepatitis Not available 2021 09:44:01 Notes:Father: Cardiovascular disease, [...] SNOMED-CT Code Diagnosis ICD10 Code Diagnosis Note [id number] Jcakie Westfall CNM [place] [address] [address] 10/07/2021 15:52:18 10/07/2021 17:00:55 Gynecologic examination [id number] Z01.419 [id number] Jackie Westfall CNM [place] [address] [address] 11/30/2021 09:42:48 11/30/2021 10:23:16 Health Concerns Section Related Observation LastModified by Organization Detai ls LastModified Time None Recorded Concern Status LastModified by Organization Details LastModified Time None Recorded Advance Directives Directive N: Payers Insurance Date Sequence Insurance Name Policy Number Policy Pires Covered Member ID Pires Member ID Guarantor Name 11/27/2021 1 [facility] [id number] Chloé Huerta [id number] Chloé Huerta Notes Date Note Type Note [...] leakage Jackie Westfall CNM [address], [place], [address], [facility] 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 11/30/2021 10:19:54 OBGyn Episode Ob Episode Information Episode Created Date Number of Fetuses Patient Bloodtype Patient rh Status Prepregnancy Weight lbs Domestic Partner Domestic Partner Phone Father Name Assembler Metal Furniture Status 10/08/19 22 1 CLOSED Fetus Data First Name Last Name Admitted to NICU Weight (g) Sex Living Outcome Pediatric Complications Fetus ID Race Codes Race Delivery Type 2863.07 2704 F Full Term [id number] Vaginal Delivery Tay Calculation Initial Tay Date [...]
--- OUTSIDE RECORDS SUMMARY | 2024-12-20 23:32 | XMS_ITS | Continuity of Care Document ---
Author Organization [facility] Address [address] [place] [address] [address] [place] [address] Phone Care Team Providers Care Cardiopulmonary Technician Name Role Phone Brenda Ortega Unavailable Unavailable Advance Directives Directive Yes / No Effective Date File Name No Information Encounters Encounter Description Practice Location Reason(s) For Visit Diagnoses Date Provider Providers Copied on Encounter [facility], [address] [place] [address] [address], [place], [place], [id number], [place] tel:[phone] [facility] No Information 2-[address] Shannon Gutierrez. [address] , [address], [place], [address], [place]. tel:[phone] Family History Family Member Type Diagnosis Age At Onset No Information Payers Payer name Insurance type Covered democrat ID Authoriza tieddie(s) [facility] CI [id number] Social History Type Description Quantity Date Captured [...]
--- OUTSIDE RECORDS SUMMARY | 2024-12-20 23:32 | XMS_ITS | Clinical Summary ---
Author Organization 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
[2024-12-20 23:33] VITALS: BP 147/80; PULSE 70; RESP 18; TEMP 36.6; O2SAT 100
[2024-12-21 02:16] VITALS: BP 174/93; PULSE 68; RESP 18; TEMP 36.7; O2SAT 99
--- OUTSIDE RECORDS SUMMARY | 2024-12-21 03:07 | XMS_ITS | Continuity of Care Document ---
Author Organization [facility] Address [address] [place] [address] [address] [place] [address] Phone Care Team Providers Care Patternmaker Sample Name Role Phone Brenda Ortega Unavailable Unavailable Advance Directives Directive Yes / No Effective Date File Name No Information Encounters Encounter Description Practice Location Reason(s) For Visit Diagnoses Date Provider Providers Copied on Encounter [facility], [address] [place] [address] [address], [place], [place], [address], [place] tel:[phone] [facility] No Information 2-[address] 5 Shannon Gutierrez. [address] , [address], [place], [address], [place]. tel:[phone] Family History Family Member Type Diagnosis Age At Onset No Information Payers Payer name Insurance type Covered constitution party ID Authoriza tieddie(s) [facility] CI [id number] Social History Type Description Quantity Date Captured [...]
--- OUTSIDE RECORDS SUMMARY | 2024-12-21 03:07 | XMS_ITS | Referral Summary ---
Author Organization 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
--- OUTSIDE RECORDS SUMMARY | 2024-12-21 03:07 | XMS_ITS | Clinical Summary ---
Author Organization [facility] Address [address] [place] [address] Care Team Providers Care Town Manager Name Role Phone Soniya Owens Primary Care Provider [phone] Allergies No known active allergies Medications ondansetron [...] Comments Blood Pressure 132/74 05/12/2024 9:14 AM CUSTOMER CONTACT SALES ASSOCIATE Pulse 68 05/12/2024 9:14 AM CUSTOMER CONTACT SALES ASSOCIATE Temperature 37.2 C (98.9 F) 03/13/2024 10:02 AM CDT Respiratory Rate 18 03/13/2024 10:02 AM CDT Oxygen Saturation 98% 05/12/2024 9:14 AM CUSTOMER CONTACT SALES ASSOCIATE Inhaled Oxygen Concentration - - Weight 74.4 kg (164 lb) 05/12/2024 9:14 AM CUSTOMER CONTACT SALES ASSOCIATE Height 167.6 cm (5' 6) 05/12/2024 9:14 AM CUSTOMER CONTACT SALES ASSOCIATE Body Mass Index 26.47 05/12/2024 9:14 AM CUSTOMER CONTACT SALES ASSOCIATE Plan of Treatment Upcoming Encounters Date Type Department Care Team (Late st Contact Info) Description 05/18/2025 9:30 AM CUSTOMER CONTACT SALES ASSOCIATE Office Visit [facility] [address] [place] [address] Adarsh Forman MD [facility], [address] [place] [address] Health Maintenance Due Date Last Done Comments Annual Physical 1963 Hepatitis C 10/14/1979 Pneumococcal Vaccine: 50+ Years (1 of 2 - PCV) 1980 Colorectal Cancer Screening Colonoscopy (10 Years) 07/09/2023 07/09/2018 PHQ-2 (Physician [place]) 06/18/2024 12/08/2022 COVID-19 Vaccine (3 2023-2 5 [...] Anatomical Region Laterality Modality Other 03/16/2023 us [facility] Scanned SCANNING Final Resu lt * COLONOSCOPY GENERIC (SCAN ORDER) (07/09/2018) 07/09/2018 us [facility] Scanned SCANNING Final Resu lt from Last 3 Months or Most Recently Relevant to Health Maintenance Insurance [facility] Care Teams Town Manager Relationship Specialty Start Date End Date Soniya Owens FNP [address] [place] [address] PCP - General Nurse Practitioner Family 12/12/19
--- OUTSIDE RECORDS SUMMARY | 2024-12-21 03:07 | XMS_ITS | Encounter Summary ---
Author Organization [facility] Address [address] [place] [address] Care Team Providers Care Bun Panner Name Role Phone Soniya Owens Primary Care Provider [phone] Encounter Details Date Type Department Care Team ([facility] Contact Info) Description 01/25/2021 Gi[employer]techt Message Enc [facility] Family & Internal Medicine [facility] [address] [place] [address] Soniya Owens FNP [address] [place], [place] [phone] RE: Other Social History Tobacco Use Types [...] Upcoming Encounters Date Type Department Care Team ([facility] Contact Info) Description 05/18/2025 9:30 AM LAST SORTER Office Visit [facility] [address] [place] [address] Adarsh Forman MD [facility], [address] [place] [address] documented as of this encounter Visit Diagnoses [...] documented as of this encounter Care Teams Bun Panner Relationship Specialty Start Date End Date Soniya Owens FNP [address] [place] [address] PCP - General Nurse Practitioner Family 12/12/19 documented as of this encounter
--- OUTSIDE RECORDS SUMMARY | 2024-12-21 03:07 | XMS_ITS | Clinical Summary ---
Author Organization 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
[2024-12-21] MEDS: dexAMETHasone SOD PHOS INJ 10 MG/ML 1 ML VIAL IM (04:22)
[2024-12-21] MEDS: HYDROmorphone HCL INJ (*CRX) 2 MG/ML VIAL 1 MG IM (04:23)
--- NOTE | 2024-12-21 04:51 | ED_ITS ---
HPI - Extremity Injury (Lower) General Chief Complaint: Extremity Injury, Lower Stated Complaint: right hip pain Time Seen by Provider: 12/21/24 02:46 History of Present Illness HPI Narrative: 64-year-old female with a history of remote ORIF of the right femur back 20 years ago. She states that she is having severe pain in the right lateral hip behind her buttock radiating down her right leg towards her knee. Describes as a pins and needle sensation with occasional sharp stabbing quality. Denies any falls or injuries that are new. No neuropathy or weakness and she is able to hold extensor mechanism and ambulate. No over documented history of sciatica. No midline back pain, fever, chills, incontinence, urinary issues, urinary retention, weakness or paresthesias. No back surgeries. Related Data Home Medications ?Medication ?Instructions ?Recorded ?Confirmed ?Last Taken ?Type buspirone 5 mg tablet 5 mg PO BID 02/17/21 05/11/21 02/16/21 History ondansetron 4 mg disintegrating 4 mg PO Q8H 02/17/21 05/11/21 02/16/21 History tablet Allergies Allergy/AdvReac Type Severity Reaction Status Date / Time No Known Allergies Allergy Verified 12/20/24 23:37 Review of Systems Review of Systems: As reviewed above in HPI [facility] Past Medical History Medical History Arthritis Elevated TSH Essential hypertension Osteoporosis without current pathological fracture Vitamin D deficiency Surgical History Surgical History Fracture of left distal radius ORIF 02-17-2021 Right patella fracture ORIF and subsequent hardware removal 2010 Right femoral shaft fracture IM [facility] Family History Family History Mother Hypertension Family history of coronary artery disease Family history of malignant neoplasm of breast in first degree relative, Onset Age: 68 Carcinoma of colon, Onset Age: 35 Father Diabetes mellitus Hypertension Family history of coronary artery disease Sibling Family history of kidney disease Social History Social History Smoking status: Former smoker Second hand tobacco smoke exposure: Yes Smoking end date: 06/18/14 Alcohol intake: current Spiritual care concerns: No Exam Narrative: GENERAL: [Well-appearing, well-nourished, and in no acute distress.] HEAD: [Normocephalic, atraumatic.] EYES: [PERRLA and EOMI.] ENT: Nares clear, no rhinorrhea or epistaxis. Mucous membranes moist. NECK: Supple. CHEST: [Clear to auscultation. No respiratory distress.] HEART: [Regular rate and rhythm]. No murmur heard. [Normal peripheral pulses.] ABDOMEN: [Soft, nondistended], [nontender], [No rigidity or guarding] EXTREMITIES: Focal reproducible tenderness to palpation over the right inferior portion of the gluteal muscle near the piriformis. Reproduces pain going down the right leg in the posterior aspect towards the knee. Plantar dorsiflexion 5/5, EHL and FHL 5/5, able to flex and extend at the knee. Passive straight leg raise an active straight leg raise elicits pain on the right side contralateral straight leg raise negative. Full strength and ambulation. No midline back pain, no bony tenderness over the iliac crest. SKIN: Warm, dry, no rash. NEURO: [No focal deficits]. Alert and oriented [x3.] PSYCH: [Normal mood and affect.] Course Vital Signs Vital signs: Vital Signs Temperature 36.6 C 12/20/24 23:33 Pulse Rate 70 12/20/24 23:33 Respiratory Rate 18 12/20/24 23:33 Blood Pressure 147/80 H 12/20/24 23:33 Pulse Oximetry 100 12/20/24 23:33 Oxygen Delivery Room Air 12/20/24 23:33 Temperature 36.7 C 12/21/24 02:16 Pulse Rate 57 L 12/21/24 05:33 Respiratory Rate 17 12/21/24 05:33 Blood Pressure 123/57 L 12/21/24 05:33 Pulse Oximetry 90 12/21/24 05:33 Oxygen Delivery Room Air 12/20/24 23:33 MDM - Extremity Injury (Lower) MDM Narrative Medical decision making narrative: 64-year-old female with a history of remote ORIF of the right femur back 20 years ago. She states that she is having severe pain in the right lateral hip behind her buttock radiating down her right leg towards her knee. Describes as a pins and needle sensation with occasional sharp stabbing quality. Denies any falls or injuries that are new. No neuropathy or weakness and she is able to hold extensor mechanism and ambulate. No over documented history of sciatica. No midline back pain, fever, chills, incontinence, urinary issues, urinary retention, weakness or paresthesias. No back surgeries. Focal reproducible tenderness to palpation over the right inferior portion of the gluteal muscle near the piriformis. Reproduces pain going down the right leg in the posterior aspect towards the knee. Plantar dorsiflexion 5/5, EHL and FHL 5/5, able to flex and extend at the knee. Passive straight leg raise an active straight leg raise elicits pain on the right side contralateral straight leg raise negative. Full strength and ambulation. No midline back pain, no bony tenderness over the iliac crest. Patient's physical exam is consistent with sciatica versus piriformis syndrome v ersus other nerve type irritation given the sciatic nerve distribution of symptoms. Patient is mildly hypertensive but normal vital signs and no red flag signs or symptoms of any back pain or injury. CT scans of the hip were obtained given her previous hip fracture requiring ORIF 20 years ago. She was given Dilaudid for pain as well as intramuscular Decadron,, Robaxin orally. Re- evaluated after pain control. CT scan reports shows no acute osseous abnormalities and some degenerative hip disease. She was improved from a pain standpoint and will be sent home with some pain control medications to get her through in addition to steroids for sciatica type pain. She will follow-up with regular doctor on outpatient basis. Patient given return precautions. Medical Records Attestation: I reviewed the patient's medical records. Imaging Data Attestation: I personally reviewed and interpreted this imaging study as follows: My impression: No acute osseous abnormalities, degenerative hip findings. Discharge Plan Discharge Clinical Impression: Sciatica of right side, Acute hip pain Patient Disposition: Home Condition: Stable Instructions: Antibiotic Form, Sciatica (ED), Piriformis Syndrome (ED) Additional Instructions: Your CT scan shows no acute abnormalities in the bones or soft tissues around the area in question and your symptoms are very classic and consistent with sciatic nerve irritation or piriformis syndrome which is entrapment of the nerves between the muscles in the gluteal region. We will treat this with high strength anti-inflammatory control including steroids and multimodal pain regimen. Follow-up with your regular primary care provider. Return with any emergent concerns. Return to the ER if you have increased pain in your back, you develop lower extremity weakness/numbness/paralysis, you have numbness or tingling in your private parts, or you are unable to control your ability to urinate/stool. Patient Language: Sinhala Prescriptions: New hydrocodone-acetaminophen 5-325 mg tablet 1 tablet PO Q8H PRN (Reason: pain) Qty: 14 0RF methocarbamol 750 mg tablet 750 mg PO TID PRN (Reason: pain) Qty: 20 0RF lidocaine 5 % adhesive patch,medicated 1 patch topical DAILY Qty: 15 0RF Rx Instructions: leave on most painful area for up to 12 hrs methylprednisolone [Medrol (Adriano)] 4 mg tablets,dose pack See Rx Instructions .ROUTE .COMPLEX Qty: 21 0RF Rx Instructions: orally per package directions No Action buspirone 5 mg tablet 5 mg PO BID ondansetron 4 mg tablet,disintegrating 4 mg PO Q8H alendronate 70 mg tablet See Rx Instructions .ROUTE .COMPLEX Qty: 12 2RF Dose Instruction: TAKE 1 TABLET ONCE WEEKLY, IN THE MORNING 30 MINUTES BEFORE 1ST FOOD, BEVERAGE, MED OF THE DAY Rx Instructions: TAKE 1 TABLET ONCE WEEKLY, IN THE MORNING 30 MINUTES BEFORE 1ST FOOD, BEVERAGE, MED OF THE DAY omeprazole 40 mg capsule,delayed release(DR/EC) 40 mg PO DAILY Qty: 30 1RF meloxicam 15 mg tablet 15 mg PO DAILY Qty: 30 2RF ergocalciferol (vitamin D2) [Vitamin D2] 1,250 mcg (50,000 unit) capsule 50,000 unit PO WEEKLY Qty: 4 6RF Follow-up/Referrals: RAND,GURDEEP MARQUIS [Primary Care Provider] - Time of Disposition: 06:03
[2024-12-21 05:33] VITALS: BP 123/57; PULSE 57; RESP 17; O2SAT 90
== END 2024-12-21 06:10 | disposition home or self-care (01) ==
PROVIDERS: Emergency Provider Student in an Organized Health Care Education/Training Program; PCP Nurse Practitioner Family
DX: M54.31 Sciatica, right side (principal); I10 Essential (primary) hypertension; E55.9 Vitamin D deficiency, unspecified; M81.0 Age-related osteoporosis without current pathological fracture; M19.90 Unspecified osteoarthritis, unspecified site; Z87.891 Personal history of nicotine dependence
CPT/HCPCS: 73700; 96372; 99284; A9270; J1100; J1171

== ENCOUNTER 2025-05-21 07:51 | Outpatient (CLI) | payer OTHER, SELFPAY ==
--- NOTE | ~2025-05-21 | DEXA_ITS ---
Bone Density Report Name: SKYE GARCIA Age: 64 Sex: Female Ethnicity: White Date of : 1960 Indication: postmenopausal; screening for osteoporosis; parental hip fracture; height loss; prior fracture; hysterectomy; Referring Provider: RAND, BENITEZ Study: Bone densitometry was performed. Exam Date: May 21, 2025 Accession number: [id number] Bone Density: Region BMD T-score Z-score Classification AP Spine(L1-L4) 0.667 -3.5 -1.8 Osteoporosis Femoral Neck (Left) 0.478 -3.3 -1.9 Osteoporosis Total Hip (Left) 0.612 -2.7 -1.6 Osteoporosis World Health Organization criteria for BMD impression classify patients as: Normal (T-score at or above -1.0), Osteopenia (T-score between -1.0 and -2.5), or Osteoporosis (T-score at or below -2.5). 10-year Fracture Risk: FRAX not reported because: Some T-score for Spine Total or Hip Total or Femoral Neck at or below -2.5 Prior hip or vertebral fracture Clinical Information Provided by Patient: Have had a previous hip or vertebral fracture Has had a low trauma fracture Parent has had a hip fracture Has used the following medications: Vitamin D, Calcium Has the following medical conditions: Hysterectomy Patient maximum height was 68 Menopause Age: 43 Drinks caffeinated beverages Onset of menses at age 16 Number of children 1 Impression: The patient has established osteoporosis, based on the Total Spine T-score and the existence of a prior fracture. The patient has risk factors, including: parental hip fracture, previous fracture. Discussion: HIGH RISK OF FRACTURE. BONE DENSITY IS UNDESIRABLY LOW AT ONE OR MORE SKELETAL SITES, CONSISTENT WITH POSTMENOPAUSAL OSTEOPOROSIS. This patient's lowest T-score, in a patient who has previously fractured, meets the World Health Organization's (WHO) criteria for severe osteoporosis. In untreated patients, the risk of osteoporotic fracture increases approximately two-fold for each 1.0 SD decrease in T-score. Low bone density is not the only risk factor for fracture; also consider factors such as patient's age, frailty or poor health, risk of falling, risk of injury, previous osteoporotic fracture, family history of osteoporosis, cigarette smoking, low body weight, etc. Not everyone with low bone mineral density has osteoporosis; osteomalacia and other metabolic bone disorders should also be considered. Patients who have osteoporosis should be evaluated for specific diseases and conditions (secondary causes) that may cause or contribute to bone loss. The [place] Association [employer] Clinical Endocrinologists (AACE) and National Osteoporosis Foundation (NOF) recommend pharmacologic intervention for all postmenopausal women with a previous hip or vertebral fracture and a T-score in this range. The patient should follow a healthful lifestyle (good nutrition with adequate calcium and vitamin D, and appropriate weight-bearing exercise). Follow-Up: Consider a repeat BMD and Vertebral Fracture Assessment (VFA) exam in 2 years or sooner if medically necessary, to reassess this patient's status. Reported by: YARELIS on 05/21/2025 8:37:00 AM. Reviewed, dictated and finalized at location A.
--- OUTSIDE RECORDS SUMMARY | 2025-05-21 07:57 | XMS_ITS | Clinical Summary ---
Author Organization [facility] Address [address] [place] [address] Care Team Providers Care Harness Puller Name Role Phone Soniya Owens Primary Care Provider [phone] Allergies No known active allergies Medications ondansetron [...] week. 12 capsule 3 03/13/20 24 Active atorvastatin (LIPITOR) 20 MG tablet Take 1 tablet (20 mg total) by mouth nightly at bedtime. 30 tablet 3 03/14/20 24 Active losartan (COZAAR) 50 MG tabletIndications: Primary hypertension Take 1 tablet (50 mg total) by mouth daily. NEW DOSE 90 tablet 3 05/18/20 25 Active losartan (COZAAR) 50 MG tabletIndications: Primary hypertension Take 1 tablet (50 mg total) by mouth daily. NEW DOSE 30 tablet 3 03/14/20 24 025 Discontin ued(Reord er) Active Problems Problem Noted Date Diagnosed Date [...] 0 to 24.9 in adult 01/19/2020 03/13/2024 Encounters Date Type Department Care Team Description 05/18/2025 9:30 AM WASHING TUB OPERATOR Office Visit [facility] [address] [place] [address] Adarsh Forman MD Hypertension (1yr) 05/18/2025 Travel from Last 3 Months Immunizations Immunization Administration Dates Next Due Influenza [...] Sign Reading Time Taken Comments Blood Pressure 138/80 05/18/2025 9:31 AM WASHING TUB OPERATOR Pulse 80 05/18/2025 9:12 AM WASHING TUB OPERATOR Temperature 37.2 C (98.9 F) 03/13/2024 10:02 AM CDT Respiratory Rate 18 03/13/2024 10:02 AM CDT Oxygen Saturation 99% 05/18/2025 9:12 AM WASHING TUB OPERATOR Inhaled Oxygen Concentration - - Weight 70.9 kg (156 lb 6.4 oz) 05/18/2025 9:12 A M WASHING TUB OPERATOR Height 167.6 cm (5' 6) 05/18/2025 9:12 AM WASHING TUB OPERATOR Body Mass Index 25.24 05/18/2025 9:12 AM WASHING TUB OPERATOR Plan of Treatment Upcoming Encounters Date Type Department Care Team (Late st Contact Info) Description 05/24/2026 9:30 AM WASHING TUB OPERATOR Office Visit [facility] [address] [place] [address] Adarsh Forman MD [facility], [address] [place] [address] Health Maintenance Due Date Last Done Comments Annual Physical 1963 Hepatitis C 10/14/1979 Pneumococcal Vaccine: 50+ Years (1 of 2 - PCV) 1980 Zoster Vaccines (1 of 2) 10/14/2011 RSV Immunization or 60+ Years (1 - Risk 60-74 years 1-dose series) 2021 Colorectal Cancer Screening Colonoscopy (10 Years) 07/09/2023 07/09/2018 PHQ-2 (Physician [place]) 06/18/2024 COVID-19 Vaccine (3 - 2024-2 6 season) 2025 07/18/2021, 06/27/2021 Mammogram Screening 03/16/2025 03/16/2023, 09/13/2017 Influenza Adult (#1) 2025 06/24/2019 DTaP, Tdap and Td Vaccines ( 2 - Td or Tdap) 06/04/2028 06/04/2018 Hepatitis A Vaccines Aged Out No long er eligible based on patient's age to complete this topic Meningococcal B Vaccine Aged Out No l [...] (03/16/2023) Anatomical Region Laterality Modality Other 03/16/2023 [facility] Scanned SCANNING Final Resu lt * COLONOSCOPY GENERIC (SCAN ORDER) (07/09/2018) 07/09/2018 [facility] Scanned SCANNING Final Resu lt from Last 3 Months or Most Recently Relevant to Health Maintenance Insurance [employer] Care Teams Harness Puller Relationship Specialty Start Date End Date Soniya Owens FNP [address] [place] [id number] PCP - General Nurse Practitioner Family 12/12/19
--- OUTSIDE RECORDS SUMMARY | 2025-05-21 07:57 | XMS_ITS | Clinical Summary ---
Author Organization 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
--- OUTSIDE RECORDS SUMMARY | 2025-05-21 07:57 | XMS_ITS | Encounter Summary ---
Author Organization [facility] Address [address] [place] [id number] Care Team Providers Care Operator Control Room Name Role Phone Soniya Owens Primary Care Provider [phone] Encounter Details Date Type Department Care Team ([facility] Contact Info) Description 01/25/2021 Foundation Medicinet Message Enc [facility] Family & Internal Medicine [facility] [address] [place] [address] Soniya Owens FNP [address] [place], [place] [phone] RE: Other Social History Tobacco Use Types [...] Upcoming Encounters Date Type Department Care Team ([facility] Contact Info) Description 05/24/2026 9:30 AM SENIOR MEDICAL BILLING SPECIALIST Office Visit [facility] [address] [place] [address] Adarsh Forman MD [facility], [address] [place] [address] documented as of this encounter Visit Diagnoses [...] documented as of this encounter Care Teams Operator Control Room Relationship Specialty Start Date End Date Soniya Owens FNP [address] [place] [address] PCP - General Nurse Practitioner Family 12/12/19 documented as of this encounter
== END 2025-05-21 07:52 | disposition home or self-care (01) ==
LOC: ANHFOHIMG 07:53
PROVIDERS: PCP Nurse Practitioner Family; Visit Provider Nurse Practitioner Family
DX: M81.0 Age-related osteoporosis without current pathological fracture (principal); M85.852 Other specified disorders of bone density and structure, left thigh
CPT/HCPCS: 77080